=== PATIENT | female | born 1940 | race Caucasian/White ===

== ENCOUNTER → 2017-12-15 | Outpatient (CLI) | payer MEDICARE ==
[2017-12-15 18:29] LABS: BASOPHILS ABSOLUTE AUTO 0.09 K/mm3 (0.00-0.23); BASOPHILS PERCENT AUTO 1 % (0-2); EOSINOPHILS ABSOLUTE AUTO 0.39 K/mm3 (0.00-0.68); EOSINOPHILS PERCENT AUTO 4 % (0-6); Hematocrit 34.3 % (33.0-51.0); Hemoglobin 11.1 g/dL (11.5-16.0); IMMATURE GRAN ABSOLUTE AUTO 0.03 K/mm3 (0.00-0.10); IMMATURE GRAN PERCENT AUTO 0 % (0-1); LYMPHOCYTES ABSOLUTE AUTO 2.31 K/mm3 (0.84-5.20); LYMPHOCYTES PERCENT AUTO 26 % (21-46); MONOCYTES ABSOLUTE AUTO 0.85 K/mm3 (0.16-1.47); MONOCYTES PERCENT AUTO 9 % (4-13); Mean Corpuscular HGB 27.6 pg (26.0-34.0); Mean Corpuscular HGB Conc 32.4 g/dL (31.5-36.5); Mean Corpuscular Volume 85 fL (80-100); Mean Platelet Volume 11.1 fL (9.1-12.4); NEUTROPHILS ABSOLUTE AUTO 5.39 K/mm3 (1.96-9.15); NEUTROPHILS PERCENT AUTO 60 % (41-73); Platelet Count 374 K/mm3 (150-400); RDW Coefficient Variation 16.4 % (11.7-14.2); RDW Standard Deviation 51.3 fL (35.1-46.3); Red Blood Cell Count 4.02 M/mm3 (3.80-5.20); White Blood Cell Count 9.06 K/mm3 (4.00-11.30)
== END | disposition home or self-care (01) ==
LOC: LAB EV 18:25
PROVIDERS: Physician Assistant
DX: R10.84 Generalized abdominal pain (principal)
CPT/HCPCS: 85025

== ENCOUNTER → 2020-08-16 | Outpatient (CLI) | payer MEDICARE ==
[2020-08-16 16:06] LABS: Source, Urine Clean Catch
[2020-08-16 17:17] LABS: Bilirubin, Urine Neg (Neg); Blood, Urine 1+ (Neg); Glucose Qualitative, Urine Neg (Neg); Ketones, Urine Neg (Neg); Leukocyte Esterase, Urine 3+ (Neg); Nitrite, Urine Pos (Neg); Protein, Urine Neg (Neg); Specific Gravity, Urine 1.015 (1.003-1.022); Urobilinogen, Urine NORM (Normal)
[2020-08-16 17:26] LABS: Appearance, Urine Hazy (Clear); Color, Urine Yellow (P-Yellow)
[2020-08-16 17:27] LABS: Bacteria Mod /hpf; Squamous Epithelial Cells Few /hpf (Few)
== END | disposition home or self-care (01) ==
LOC: LAB SHORT 16:03 → LAB 16:03
PROVIDERS: Nurse Practitioner Family
DX: N30.00 Acute cystitis without hematuria (principal)
CPT/HCPCS: 81001; 87077; 87086; 87186

== ENCOUNTER 2020-12-22 02:33 | Emergency (ER) | payer MEDICARE ==
[~2020-12-22] VITALS: Ht 165.1 cm; Wt 90.7 kg
== END 2020-12-22 05:29 | disposition home or self-care (01) ==
LOC: ER 02:33
DX: S00.93XA Contusion of unspecified part of head, initial encounter (principal); S40.012A Contusion of left shoulder, initial encounter; I10 Essential (primary) hypertension; E03.9 Hypothyroidism, unspecified; E78.5 Hyperlipidemia, unspecified; W18.30XA Fall on same level, unspecified, initial encounter; Y92.002 Bathroom of unspecified non-institutional (private) residence as the place of occurrence of the external cause
CPT/HCPCS: 70450; 72125; 73030; 99284-25

== ENCOUNTER → 2021-04-29 | Outpatient (CLI) | payer MEDICARE ==
[2021-04-29 15:32] LABS: Source, Urine Clean Catch
[2021-04-29 15:57] LABS: Appearance, Urine Hazy (Clear); Bilirubin, Urine Neg (Neg); Blood, Urine 1+ (Neg); Color, Urine Yellow (P-Yellow); Glucose Qualitative, Urine Neg (Neg); Ketones, Urine Neg (Neg); Leukocyte Esterase, Urine 3+ (Neg); Nitrite, Urine Pos (Neg); Protein, Urine Neg (Neg); Urobilinogen, Urine NORM (Normal)
[2021-04-29 16:03] LABS: Bacteria Many /hpf; Red Blood Cells, Urine 0-2 /hpf (0-2); Squamous Epithelial Cells Few /hpf (Few); White Blood Cells, Urine 50-100 /hpf (0-5)
== END | disposition home or self-care (01) ==
LOC: LAB 15:20 → LAB SHORT 15:20
PROVIDERS: Student in an Organized Health Care Education/Training Program
DX: N18.32 Chronic kidney disease, stage 3b (principal)
CPT/HCPCS: 81001; 87077; 87086; 87186

== ENCOUNTER → 2021-06-05 | Outpatient (CLI) | payer MEDICARE | LOC: LAB SHORT 14:49 → LAB 14:49 | DX: R82.998 Other abnormal findings in urine (principal) | CPT/HCPCS: 87077; 87086; 87186 ==

== ENCOUNTER 2022-04-16 16:19 | Emergency (ER) | payer MEDICARE ==
[~2022-04-16] VITALS: Ht 165.1 cm; Wt 83.9 kg
[2022-04-16 17:20] LABS: BASOPHILS ABSOLUTE AUTO 0.05 K/mm3 (0.00-0.23); BASOPHILS PERCENT AUTO 0 % (0-2); EOSINOPHILS ABSOLUTE AUTO 0.05 K/mm3 (0.00-0.68); EOSINOPHILS PERCENT AUTO 0 % (0-6); Hematocrit 32.8 % (33.0-51.0); Hemoglobin 10.4 g/dL (11.5-16.0); IMMATURE GRAN ABSOLUTE AUTO 0.06 K/mm3 (0.00-0.10); IMMATURE GRAN PERCENT AUTO 0 % (0-1); LYMPHOCYTES ABSOLUTE AUTO 0.93 K/mm3 (0.84-5.20); LYMPHOCYTES PERCENT AUTO 7 % (21-46); MONOCYTES ABSOLUTE AUTO 1.04 K/mm3 (0.16-1.47); MONOCYTES PERCENT AUTO 7 % (4-13); Mean Corpuscular HGB 25.7 pg (26.0-34.0); Mean Corpuscular HGB Conc 31.7 g/dL (31.5-36.5); Mean Corpuscular Volume 81 fL (80-100); Mean Platelet Volume 10.1 fL (9.1-12.4); NEUTROPHILS PERCENT AUTO 85 % (41-73); Platelet Count 394 K/mm3 (150-400); RDW Coefficient Variation 17.6 % (11.7-14.2); RDW Standard Deviation 51.9 fL (35.1-46.3); Red Blood Cell Count 4.04 M/mm3 (3.80-5.20); White Blood Cell Count 14.23 K/mm3 (4.00-11.30)
[2022-04-16 17:40] LABS: Albumin, Blood 3.2 g/dL (3.4-5.0); Albumin/Globulin Ratio 0.7 (0.8-1.8); Bilirubin, Total 0.7 mg/dL (0.1-1.0); Creatinine, Blood 1.2 mg/dL (0.40-1.00); Globulin, Blood 4.5 g/dL (2.2-4.0); Potassium, Blood 4.1 mmol/L (3.5-5.5); Total Protein, Blood 7.7 g/dL (6.4-8.2)
== END 2022-04-16 20:43 | disposition home or self-care (01) ==
LOC: ER 16:19
PROVIDERS: Physician Assistant
DX: M25.511 Pain in right shoulder (principal); I10 Essential (primary) hypertension
CPT/HCPCS: 36415; 71046; 73030; 80053; 84484; 85025; 93005; 93010; 96374; 96375; 96376; 99284-25; J2270; J2405

== ENCOUNTER 2022-04-18 16:34 | Inpatient (IN) | payer MEDICARE ==
[~2022-04-18] VITALS: Ht 165.1 cm; Wt 86.2 kg
[2022-04-18 18:07] LABS: Source, Urine Clean Catch
[2022-04-18 18:15] LABS: Appearance, Urine Hazy (Clear); Bilirubin, Urine Neg (Neg); Blood, Urine 1+ (Neg); Color, Urine Yellow (P-Yellow); Glucose Qualitative, Urine Neg (Neg); Ketones, Urine Neg (Neg); Leukocyte Esterase, Urine 3+ (Neg); Nitrite, Urine Pos (Neg); Protein, Urine 1+ (Neg); Specific Gravity, Urine 1.015 (1.003-1.022); Urobilinogen, Urine NORM (Normal)
[2022-04-18 18:22] LABS: Bacteria Mod /hpf; Hyaline Casts 0-2 /lpf (0-2); Red Blood Cells, Urine 0-2 /hpf (0-2); Squamous Epithelial Cells Rare /hpf (Few); Transitional Epithelial Cells Rare /hpf (0-Rare); White Blood Cells, Urine TNTC /hpf (0-5)
[2022-04-18 18:32] LABS: BASOPHILS ABSOLUTE AUTO 0.05 K/mm3 (0.00-0.23); BASOPHILS PERCENT AUTO 0 % (0-2); EOSINOPHILS ABSOLUTE AUTO 0.25 K/mm3 (0.00-0.68); EOSINOPHILS PERCENT AUTO 2 % (0-6); Hematocrit 29.5 % (33.0-51.0); Hemoglobin 9.3 g/dL (11.5-16.0); IMMATURE GRAN ABSOLUTE AUTO 0.05 K/mm3 (0.00-0.10); IMMATURE GRAN PERCENT AUTO 0 % (0-1); LYMPHOCYTES PERCENT AUTO 8 % (21-46); MONOCYTES ABSOLUTE AUTO 0.78 K/mm3 (0.16-1.47); MONOCYTES PERCENT AUTO 6 % (4-13); Mean Corpuscular HGB 25.5 pg (26.0-34.0); Mean Corpuscular HGB Conc 31.5 g/dL (31.5-36.5); Mean Corpuscular Volume 81 fL (80-100); Mean Platelet Volume 10.7 fL (9.1-12.4); NEUTROPHILS ABSOLUTE AUTO 10.42 K/mm3 (1.96-9.15); NEUTROPHILS PERCENT AUTO 83 % (41-73); Platelet Count 421 K/mm3 (150-400); RDW Coefficient Variation 17.5 % (11.7-14.2); RDW Standard Deviation 51.1 fL (35.1-46.3); Red Blood Cell Count 3.64 M/mm3 (3.80-5.20); White Blood Cell Count 12.55 K/mm3 (4.00-11.30)
[2022-04-18 18:49] LABS: Albumin, Blood 2.6 g/dL (3.4-5.0); Albumin/Globulin Ratio 0.6 (0.8-1.8); Bilirubin, Total 0.5 mg/dL (0.1-1.0); Bun/Creatinine Ratio 18.2 (12.0-20.0); Calcium, Blood 8.6 mg/dL (8.5-10.1); Creatinine, Blood 1.76 mg/dL (0.40-1.00); Globulin, Blood 4.4 g/dL (2.2-4.0); Magnesium, Blood 2.2 mg/dL (1.6-2.4); Potassium, Blood 3.9 mmol/L (3.5-5.5)
[2022-04-18] MEDS ORDERED: OXYB5 PO ×2 (20:07)
[2022-04-18] MEDS ORDERED: AMLODIPINE BESYL5 MG PO ×2 (20:07)
[2022-04-18] MEDS ORDERED: FLUC150A PO (20:07)
[2022-04-18] MEDS ORDERED: EUTHYROX150 MC1 PO (20:08)
[2022-04-18] MEDS ORDERED: ATORVASTATIN CA20 MG PO ×2 (20:08)
[2022-04-18] MEDS ORDERED: OMEP20ER PO ×2 (20:17)
[2022-04-18] MEDS ORDERED: KLOR-CON 1010 ME8 PO ×2 (20:17)
[2022-04-18] MEDS ORDERED: FUROSEMIDE20 MG PO ×2 (20:17)
--- NOTE | 2022-04-18 21:35 | NUR ---
REPORT RECIEVED FROM RAJ HERNANDEZ (ER) AT 0458
[2022-04-18 21:42] LABS: Free Thyroxine 1.47 ng/dL (0.70-1.60)
[2022-04-18 21:44] LABS: Thyroid Stimulating Hormone 11.6 uIU/mL (0.360-4.800)
[2022-04-18] MEDS ORDERED: LEVSOD150 PO ×2 (22:11)
[2022-04-18] MEDS ORDERED: LOSA50 PO ×2 (22:14)
--- NOTE | 2022-04-18 23:06 | NUR ---
ARRIVED FROM ER AT 2150. PT AOX4. [place]. APPEARS TO BE IN PAIN, GENERALIZE WEAKNESS DUE TO UTI/THAO. PT C/O NECK, SHOULDER AND ABD PAIN. MEDICATED WITH TYLENOL. FLUIDS INFUISING AT 75 MLS/HR. SNACKS BROUGHT IN ROOM. TOLERATING FOOD AND PO INTAKE DENIES NAUSEA AND VOMITING. ATTENDS IN PLACE. IV ON L AC. HEPARIN SC GIVEN. CALL LIGHT WITHIN REACH. WILL CONTINUE TO MONITOR PT.
--- NOTE | 2022-04-19 03:56 | NUR ---
0145: PT STARTING TO ESCALATE/BECOMES MORE AGITATED AND CONFUSE. ALSO HAVING HALLUCINATIONS. PT ATTEMPTING TO GET OUT OF BED. PUSHING STAFF. REFUSE TO STAY IN BED. PULLED TELE MONITOR LINES. 0200: CALLED DR. ABEBE, NOTIFY OF THE INCIDENT, NEW ORDER FOR RESTRAINTS (VEST AND 2 BILATERAL WRIST SOFT) AND HALDOL 2.5MG Q6, PRN.
--- NOTE | 2022-04-19 03:59 | NUR ---
SHIFT SUMMARY PT ALERT AND ORIENTED TO SELF AND PLACE. PT IS VERY CONFUSE AND HALLUCINATING. ATTEMPTING TO GET OUT BED. RESTRAINTS ORDERED FOR SOFT WRIST BILATERAL AND VEST FOR SAFETY. PT ATTEMPT TO BITE THE RESTRAINTS, SCRATCHING AND KICKING NURSING STAFF WELL WHEN RESTRAINTS WERE APPLIED. PT REPORTS SHOULDER PAIN, NECK PAIN, HEADACHE SINCE ADMISSION. NS INFUSING AT 75MLS/HR WITH AN IV SITE ON L AC. PT INTERMITTENTLY YELLS/SCREAMS IN BED. HALDOL 2.5MG WAS GIVEN ONCE (ORDERED Q6. PRN). APPEARS THAT THE MEDICATION HELPED WITH HER AGITATION BUT PT IS STILL CONFUSE. ATTENDS IN PLACE R/T TO URGENCY AND FREQUENCY. VSS. BED ALARM FOR SAFETY. CALL LIGHT WITHIN REACH. WILL CONTINUE TO MONITOR AND WILL PROVIDE REPORT TO ONCOMING NURSE.
[2022-04-19 05:17] LABS: BASOPHILS ABSOLUTE AUTO 0.05 K/mm3 (0.00-0.23); BASOPHILS PERCENT AUTO 1 % (0-2); EOSINOPHILS ABSOLUTE AUTO 0.26 K/mm3 (0.00-0.68); EOSINOPHILS PERCENT AUTO 2 % (0-6); Hematocrit 28.6 % (33.0-51.0); Hemoglobin 9.1 g/dL (11.5-16.0); IMMATURE GRAN ABSOLUTE AUTO 0.04 K/mm3 (0.00-0.10); IMMATURE GRAN PERCENT AUTO 0 % (0-1); LYMPHOCYTES ABSOLUTE AUTO 0.74 K/mm3 (0.84-5.20); LYMPHOCYTES PERCENT AUTO 7 % (21-46); MONOCYTES ABSOLUTE AUTO 0.71 K/mm3 (0.16-1.47); MONOCYTES PERCENT AUTO 7 % (4-13); Mean Corpuscular HGB 25.7 pg (26.0-34.0); Mean Corpuscular HGB Conc 31.8 g/dL (31.5-36.5); Mean Corpuscular Volume 81 fL (80-100); Mean Platelet Volume 11.1 fL (9.1-12.4); NEUTROPHILS ABSOLUTE AUTO 9.17 K/mm3 (1.96-9.15); NEUTROPHILS PERCENT AUTO 84 % (41-73); Platelet Count 411 K/mm3 (150-400); RDW Coefficient Variation 17.4 % (11.7-14.2); RDW Standard Deviation 51.5 fL (35.1-46.3); Red Blood Cell Count 3.54 M/mm3 (3.80-5.20); White Blood Cell Count 10.97 K/mm3 (4.00-11.30)
[2022-04-19 05:40] LABS: Albumin, Blood 2.6 g/dL (3.4-5.0); Albumin/Globulin Ratio 0.6 (0.8-1.8); Bilirubin, Total 0.6 mg/dL (0.1-1.0); Bun/Creatinine Ratio 17.1 (12.0-20.0); Calcium, Blood 8.7 mg/dL (8.5-10.1); Creatinine, Blood 1.75 mg/dL (0.40-1.00); Globulin, Blood 4.1 g/dL (2.2-4.0); Potassium, Blood 3.5 mmol/L (3.5-5.5); Total Protein, Blood 6.7 g/dL (6.4-8.2)
[2022-04-19] MEDS ORDERED: Prozac40 MG PO ×2 (09:46)
[2022-04-19] MEDS ORDERED: POTA10T PO (09:47)
[2022-04-19] MEDS ORDERED: BUSP10 PO ×2 (09:47)
[2022-04-19] MEDS ORDERED: CATAPRES0.1 MG PO ×2 (09:48)
[2022-04-19] MEDS ORDERED: METO25ER PO ×2 (09:49)
--- NOTE | 2022-04-19 17:14 | NUR ---
SHIFT SUMMARY PT AXO X3 (TO ORIENTATION QUESTIONS) THOUGH CONFUSED, HALLUCINATING THROUGHOUT THE SHIFT. YANET DC'D THIS MORNING WHEN "FAMILY FRIEND" CAME TO SIT WITH PATIENT. HOWEVER AT 1052 FAMILY FRIEND HAD TO LEAVE, PT CONTINUED TO BE CONFUSED AND FALL RISK AND THEREFOR PER DR. SANCHEZ ORDER PT WAS PLACED BACK IN RESTRAINTS, TOLERATING WELL. VSS. NEW IV PLACED THIS SHIFT AND PRIOR IV DC'D R/T LEAKING. UP WITH 1-2 ASSIST WITH FWW AND GB, PIVOT TRANSFER. CONT/INCONT WITH FREQUENT VOIDS. BED IN LOW POSITION, CALL LIGHT WITHIN REACH. BED ALARM ON. LR INFUSING PER EMAR. PT COMPLAINS OF "ARTHRITIS" IN HER WRISTS, PLACED ON PILLOWS FOR COMFORT. PAINFUL WITH MOVEMENT.
--- NOTE | 2022-04-20 04:02 | NUR ---
SHIFT SUMMARY: PT WAS A/OX1. SHE SUNDOWNED THROUGHOUT THE SHIFT, AND ALTHOUGH SHE REMAINED IN THE YANET VEST THE PATIENT IS ABLE TO WIGGLE TO THE SIDE OF THE BED. SHE HAD VISUAL AND AUDITORY HALLUCINATIONS AND WAS EXTREMELY PARANOID TOWARDS THE STAFF. PER TELE MONITOR SHE WAS SR/90s. SHE DID FINISH HER 1L OF LR AND IS NOW SALINE LOCKED. SHE DID NOT HAVE ANY C/O PAIN, FEVER, OR NAUSEA. HER BED IS IN THE LOWEST POSITION AND THE ALARM IS SET FOR PT SAFETY.
[2022-04-20 08:42] LABS: BASOPHILS ABSOLUTE AUTO 0.05 K/mm3 (0.00-0.23); BASOPHILS PERCENT AUTO 0 % (0-2); EOSINOPHILS ABSOLUTE AUTO 0.15 K/mm3 (0.00-0.68); EOSINOPHILS PERCENT AUTO 1 % (0-6); Hemoglobin 9.6 g/dL (11.5-16.0); IMMATURE GRAN ABSOLUTE AUTO 0.12 K/mm3 (0.00-0.10); IMMATURE GRAN PERCENT AUTO 1 % (0-1); LYMPHOCYTES ABSOLUTE AUTO 1.34 K/mm3 (0.84-5.20); LYMPHOCYTES PERCENT AUTO 10 % (21-46); MONOCYTES ABSOLUTE AUTO 1.12 K/mm3 (0.16-1.47); MONOCYTES PERCENT AUTO 8 % (4-13); Mean Corpuscular HGB 25.4 pg (26.0-34.0); Mean Corpuscular Volume 82 fL (80-100); Mean Platelet Volume 10.6 fL (9.1-12.4); NEUTROPHILS ABSOLUTE AUTO 11.38 K/mm3 (1.96-9.15); NEUTROPHILS PERCENT AUTO 80 % (41-73); Platelet Count 457 K/mm3 (150-400); RDW Coefficient Variation 17.2 % (11.7-14.2); RDW Standard Deviation 51.3 fL (35.1-46.3); Red Blood Cell Count 3.78 M/mm3 (3.80-5.20); White Blood Cell Count 14.16 K/mm3 (4.00-11.30)
[2022-04-20 08:53] LABS: Bun/Creatinine Ratio 13.9 (12.0-20.0); Calcium, Blood 8.5 mg/dL (8.5-10.1); Creatinine, Blood 1.01 mg/dL (0.40-1.00); Potassium, Blood 3.5 mmol/L (3.5-5.5)
--- NOTE | 2022-04-20 17:26 | NUR ---
SHIFT SUMMARY PT AXO X1-2 AT THIS TIME WHICH IS IMPROVED FROM START OF SHIFT WHEN PATIENT WAS MUMBLING INCOHERENTLY. PT TEMPERATURE THROUGHOUT THE SHIFT HAS BEEN 99.6-99.9. AND BP HAS BEEN INCREASING THROUGHOUT THE SHIFT. DR SANCHEZ NOTIFIED OF BP WITH MORNING ROUNDING AND AGAIN AT 1720, NEW ORDERS OF HYDRALAZINE PLACED. POWERGLIDE PLACED THIS SHIFT PER CHARGE NURSE JULISSA MCDONALD RN AT 1715. PT CONTINUES TO BE IN YANET FOR SAFETY SHE HAS BEEN ATTEMPTING OOB AND CONTINUES TO BE A HIGH RISK FOR FALLS. PT ALSO COMBATIVE AT TIMES. BED IN LOW POSITION, CALL LIGHT WITHIN REACH AND BED ALARM ON. THIS PATIENT TO TRANSFER TO ROOM IN SCU WHEN IT IS CLEANED.
--- NOTE | 2022-04-20 17:33 | NUR ---
PT'S SON CALLED THIS SHIFT FOR AN UPDATE HE (SADI COOLEY, [id number]) REQUESTS TO BE THE MAIN CONTACT WITH ALL DECISIONS AND UPDATES. HIS SISTER KENDRA LIVES LOCALLY AND SHOULD BE CONTACTED SECOND IF NEEDED. ([phone].) Darrius IS LITO SON AND IS ABLE TO VISIT PATIENT. FRANCIE IS A FAMILY FRIEND WHO IS IN TOWN TEMPORARILY TO HELP CARE FOR PATIENT AT HOME AND PRIOR TO HOSPITALIZATION. SADI WOULD LIKE TO SPEAK WITH FOSTER CARE THERAPIST REGARDING SAFE DISCHARGE PLAN.
--- NOTE | 2022-04-20 18:41 | NUR ---
SHIFT SUMMARY PATIENT ARRIVED TO ROOM 352 FROM 301 AT 1820. REPORT RECEIVED. BELONGINGS WERE PROGHT WITH PATIENT INCLUDING HER HOME CPAP. RT AT BEDSIDE TO INSPECT AND SET UP. PATIENT IS IN A YANET VEST. SHE IS ALERT TO HERSELF. SHE REFUSES DINNER STATING "THEY PUT STUFF IN THE FOOD TO MAKE YOU GO TO THE BATHROOM EVERY THREE DAYS." SHE IS LAYING IN BED, BED LOW AND LOCKED, CALL LIGHT WITHIN REACH, BED ALARM SET. WILL CONT TO MONITOR UNTIL REPORT GIVEN TO AIRCRAFT DESIGN ENGINEER.
--- NOTE | 2022-04-20 21:06 | NUR ---
REFUSED ALL HS MEDS, BECAME VERY AGITATED WHEN NURSE ENCOURAGED HER TO TAKE THEM, VOICED DIDNT CARE ABOUT THE MEDS AND WHY THEY WERE GIVEN TO HER. YANET VEST INTACT, FOR SAFETY. HIGH FALL RISK AND NOT REDIRECTABLE. CALL LIGHT IN REACH
--- NOTE | 2022-04-20 21:41 | NUR ---
AGITATION CONTINUES. REFUSED TO TAKE HS MEDS. PULLING OFF TELE LINES. NOT REDIRECTABLE. REMAINS HIGH FALL RISK, PULLING AT LINES. SCREAMING. MD NOTIFIED AND RESTRAINTS INCREASSED TO INCLUDE BILAT SOFT WRIST. CALL LIGHT IN REACH. ENCOURAGED TO BE SAFE.
--- NOTE | 2022-04-21 00:23 | NUR ---
CONTINUES TO REFUSE TO DRINK FLUIDS OR EAT. MD WAS NOTIFIED AND NS WAS ORDERED AT 75 ML/HR. ON CAMERA FOR SAFETY WELL. WILL CONTINUE TO MONITOR/ASSESS.
--- NOTE | 2022-04-21 04:32 | NUR ---
MECHANIC CHIEF SUMMARY AWAKE AND PULLING AT LINES, ATTEMPTS TO GET OUT OF BED, DEFIANT WITH STAFF ATTEMPTING TO REDIRECT HER FOR HER SAFETY. CALLING OUT AT VISUAL HALLUCINATIONS SHE SEEMS TO VISUALIZE, EVEN ATTEMPTING TO HAVE STAFF INTERACT WITH THE HALLUCINATION SHE SEES. YANET VEST FOR SAFETY WENT TO BILAT WRIST RESTRAINTS AND EVENTUAL MITTS FOR PREVENTING PULLING OUT IV AND OFF TELE LEADS. BP ELEVATED, ANTIHYPERTENSIVE ADMINISTERED - SEE MAR AND DOC FLOW SHEETS FOR DETAILS. MED TELE SINUS TACH. CURRENTLY RESTING QUIETLY, BUT STILL RESTLESS AT TIMES. CALL LIGHT IN REACH.
[2022-04-21 08:45] LABS: BASOPHILS PERCENT AUTO 1 % (0-2); EOSINOPHILS ABSOLUTE AUTO 0.26 K/mm3 (0.00-0.68); EOSINOPHILS PERCENT AUTO 2 % (0-6); Hemoglobin 10.8 g/dL (11.5-16.0); IMMATURE GRAN ABSOLUTE AUTO 0.19 K/mm3 (0.00-0.10); IMMATURE GRAN PERCENT AUTO 1 % (0-1); LYMPHOCYTES ABSOLUTE AUTO 1.42 K/mm3 (0.84-5.20); LYMPHOCYTES PERCENT AUTO 10 % (21-46); MONOCYTES ABSOLUTE AUTO 1.13 K/mm3 (0.16-1.47); MONOCYTES PERCENT AUTO 8 % (4-13); Mean Corpuscular HGB 25.5 pg (26.0-34.0); Mean Corpuscular HGB Conc 31.8 g/dL (31.5-36.5); Mean Corpuscular Volume 80 fL (80-100); Mean Platelet Volume 10.2 fL (9.1-12.4); NEUTROPHILS ABSOLUTE AUTO 11.02 K/mm3 (1.96-9.15); NEUTROPHILS PERCENT AUTO 78 % (41-73); Platelet Count 524 K/mm3 (150-400); RDW Coefficient Variation 17.3 % (11.7-14.2); RDW Standard Deviation 50.3 fL (35.1-46.3); Red Blood Cell Count 4.23 M/mm3 (3.80-5.20); White Blood Cell Count 14.12 K/mm3 (4.00-11.30)
[2022-04-21 08:56] LABS: Bun/Creatinine Ratio 16.5 (12.0-20.0); Calcium, Blood 8.9 mg/dL (8.5-10.1); Creatinine, Blood 0.85 mg/dL (0.40-1.00); Potassium, Blood 3.3 mmol/L (3.5-5.5)
--- NOTE | 2022-04-21 16:32 | NUR ---
SHIFT SUMMARY PT AWAKE AT START OF SHIFT, VERY AGITATED AND COMBATIVE. PT TRYING TO PULL OUT DONALDO IV SITE AND DRSG. PT YELLING OUT AND REMAINED AGITATED FOR A WHILE AND THEN WENT TO SLEEP. PT NAPPED UNTIL AFTER BREAKFAST, NOT WANTING TO WAKE UP AND EAT. P/T HERE TO TRY TO WORK WITH PT AND LATER RETURNED WHEN MORE AWAKE. PT ASSISTED UP TO BSC AND THEN CHAIR AT BEDSIDE. PT HAS REMAINED IN CHAIR SINCE WORKING WITH PT/OT. PT HAS BEEN MORE CO-OP SINCE WAKING UP AFTER NAP THIS AM. REMAINS CONFUSED ABOUT MOST THINGS, BUT CO-OP. SON CALLED FOR AN UPDATE; GIVEN. SON REPORTED THAT HIS MOM IS NOT NORMALLY COMBATIVE. DR SANCHEZ TO CONTACT FAMILY TO UPDATE THEM. PT TO D/C TO SNF WHEN BED AVAILABLE. CHAIR AND BED ALARM USED FOR SAFETY. CALL LT IN REACH.
--- NOTE | 2022-04-21 19:07 | NUR ---
UP IN CHAIR, TALKING WITH VISITOR. AFFECT CHEERFUL. CALL LIGHT IN REACH
--- NOTE | 2022-04-21 21:29 | NUR ---
MORE CHEERFUL AFFECT THIS HS. COMPLIANT WITH ASSISTANCE TO BED, TOLERAATED HS MEDS WELL. IVF INFUSING AT 75 ML/HR. NURSE SPOKE WITH SON "SADI", WHO HAD REQUESTED AN UPDATE AND VOICED TO CALL HIM IF NEEDED "ANY TIME DAY OR NIGHT". CALL LIGHT IN PT REACH. HOB ELEVATED ABOUT 30 DEGREES
--- NOTE | 2022-04-22 03:39 | NUR ---
WAS CALLING OUT, SCREAMING. REFUSED SLEEP MED ORDERED EARLIER. ATTEMPTING TO GET OUT OF BED, THEN PULLED OFF TELE LEADS. NURSE CAME INTO ROOM. CONFRONTED BEHAVIOR. PT SCREAMED THAT SHE WANTED TO TALK TO HER SON SADI. SADI WAS CALLED AND AGREED TO SPEAK WITH HIS MOTHER. COLD SODA GIVEN TO PT SHE SAID IT HELPS HER SLEEP. LEADS REPLACED. PT CHANGED (WAS INCONT OF URINE). CALL LIGHT IN ERACH. RESTING AT THIS TIME.
--- NOTE | 2022-04-22 04:15 | NUR ---
RISK MODELER SUMMARY AT SHIFT COMMENCE WAS CHEERFUL, VISITING WITH [facility]. COMPLIANT [facility] HS MEDS AND ASSISTED TO BED. SOME RESTLESSNESS NOTED, WANTED MED FOR SLEEP. CALLS PLACED TO MD TRANSITION RN, MED ORDER OBTAINED, BUT PT CHANGED HER MIND WHEN OFFERED MED. LATER RESTLESSNESS INCREASED TO ANXIUS ACTIONS, ATTEMPTING TO CLIMB OUT OF BED. PULLED OFF TELE STRIPS AND WAS TRYING TO HIT STAFF WITH THEM. NURSE CONFRONTED BEHAVIOR, PT VOICED WANTING TO TALK WITH HER SON, SON WAS CALLED AND HE TALKED WITH HER. SON ALSO SAID PT LIKES COKE WITH ICE, THAT IT HAS HELPED HER TO SLEEP. PEPSI ON ICE GIVEN. CURRENTLY RESTING QUIETLY. TELE IN PLACE. CALL LIGHT IN REACH.
--- NOTE | 2022-04-22 06:12 | NUR ---
REFUSING ALL MEDS AND BLOOD DRAW AT THIS TIME. WILL HAVE AM RN DRAW AM LABS. CALL LIGHT IN REACH. PT QUIET.
[2022-04-22 08:10] LABS: BASOPHILS ABSOLUTE AUTO 0.09 K/mm3 (0.00-0.23); BASOPHILS PERCENT AUTO 1 % (0-2); EOSINOPHILS ABSOLUTE AUTO 0.59 K/mm3 (0.00-0.68); EOSINOPHILS PERCENT AUTO 5 % (0-6); Hematocrit 31.6 % (33.0-51.0); Hemoglobin 10.1 g/dL (11.5-16.0); IMMATURE GRAN ABSOLUTE AUTO 0.16 K/mm3 (0.00-0.10); IMMATURE GRAN PERCENT AUTO 1 % (0-1); LYMPHOCYTES ABSOLUTE AUTO 2.17 K/mm3 (0.84-5.20); LYMPHOCYTES PERCENT AUTO 19 % (21-46); MONOCYTES ABSOLUTE AUTO 0.95 K/mm3 (0.16-1.47); MONOCYTES PERCENT AUTO 8 % (4-13); Mean Corpuscular HGB 25.5 pg (26.0-34.0); Mean Corpuscular Volume 80 fL (80-100); Mean Platelet Volume 10.3 fL (9.1-12.4); NEUTROPHILS ABSOLUTE AUTO 7.46 K/mm3 (1.96-9.15); NEUTROPHILS PERCENT AUTO 65 % (41-73); Platelet Count 532 K/mm3 (150-400); RDW Coefficient Variation 17.2 % (11.7-14.2); RDW Standard Deviation 50.2 fL (35.1-46.3); Red Blood Cell Count 3.96 M/mm3 (3.80-5.20); White Blood Cell Count 11.42 K/mm3 (4.00-11.30)
[2022-04-22 08:35] LABS: Bun/Creatinine Ratio 17.8 (12.0-20.0); Calcium, Blood 8.9 mg/dL (8.5-10.1); Creatinine, Blood 1.07 mg/dL (0.40-1.00); Potassium, Blood 3.6 mmol/L (3.5-5.5)
--- NOTE | 2022-04-22 14:25 | NUR ---
SHIFT SUMMARY PT AWAKE THIS AM, AT START OF SHIFT, AFTER REFUSING EARLY AM MEDS AND LAB DRAW. PT A LITTLE CALMER AT START OF SHIFT TODAY THAN YESTERDAY OR REPORT OF LAST NIGHT. PT HAS CONTINUED HALLUCINATING THRU OUT THE DAY AGAIN TODAY; OCCASSIONALLY REALIZING THAT SHE IS. DR SANCHEZ IN TO SEE PT THIS AM. SON CALLED FROM [place] AGAIN TODAY FOR UPDATE. DAUGHTER ALSO IN TO VISIT. PT UP TO SHOWER THIS AM BEFORE BREAKFAST, WITH ASSIST BY STEWARD/STEWARDESS SECOND CLASS'S. LINENS AND GOWN CHANGED. NO C/O AGAIN TODAY. TELE D/C'D; PT REMAINED SR PER MX TECH. CALL LT IN REACH. CHAIR ALARM ON FOR SAFETY.
--- NOTE | 2022-04-23 03:26 | NUR ---
NOTE C/O PAIN OF RIGHT HAND. NOTE SOME SWELLING OF AREA, MD NOTIFIED AND ORDERS FOR HAND XRAY OBTAINED. RADIOLOGY NOTIFIED
--- NOTE | 2022-04-23 03:50 | NUR ---
SQUARE DANCE CALLER SUMMARY INTERMITTENT CALLING OUT, RECEIVED HS PRN SEROQUEL FOR ANXIETY/HALLUCINATIONS. BUT SEEMED TO EXCALATE TO SCREAMING AND CALLING OUT FOR STAFF TO FIND THE CHILDREN WHO WERE HIDING UNDER THE BED AND OTHERS SHE SAID WERE IN THE BATHROOM (NO ONE WAS THERE). MULTIPLE ATTEMPTS TO GET OUT OF BED, DEFIANT AND RESISTENT TO REDIRECTION FOR SAFETY. PLACED IN YANET VEST AND 4 SIDERAILS PER MD ORDERES FOR SAFETY. LATER WHEN ASSISTING WITH BEDSIDE COMMODE, NOTED PAIN AND SWELLING OF RIGHT HAND, MD NOTIFIED AND ORDERS FOR X RAY OBTAINED. HAND WAS JUST X RAYED. AWAITING RESULTS. CALL LIGHT IN REACH. REMAINS ON CAMERA FOR SAFETY WELL. X RAYED AND
[2022-04-23 09:24] LABS: BASOPHILS ABSOLUTE AUTO 0.14 K/mm3 (0.00-0.23); BASOPHILS PERCENT AUTO 1 % (0-2); EOSINOPHILS ABSOLUTE AUTO 0.76 K/mm3 (0.00-0.68); EOSINOPHILS PERCENT AUTO 6 % (0-6); Hematocrit 34.3 % (33.0-51.0); Hemoglobin 10.7 g/dL (11.5-16.0); IMMATURE GRAN ABSOLUTE AUTO 0.14 K/mm3 (0.00-0.10); IMMATURE GRAN PERCENT AUTO 1 % (0-1); LYMPHOCYTES ABSOLUTE AUTO 1.94 K/mm3 (0.84-5.20); LYMPHOCYTES PERCENT AUTO 14 % (21-46); MONOCYTES ABSOLUTE AUTO 0.83 K/mm3 (0.16-1.47); MONOCYTES PERCENT AUTO 6 % (4-13); Mean Corpuscular HGB 25.4 pg (26.0-34.0); Mean Corpuscular HGB Conc 31.2 g/dL (31.5-36.5); Mean Corpuscular Volume 82 fL (80-100); Mean Platelet Volume 10.2 fL (9.1-12.4); NEUTROPHILS ABSOLUTE AUTO 10.02 K/mm3 (1.96-9.15); NEUTROPHILS PERCENT AUTO 73 % (41-73); Platelet Count 582 K/mm3 (150-400); RDW Coefficient Variation 17.3 % (11.7-14.2); RDW Standard Deviation 51.2 fL (35.1-46.3); Red Blood Cell Count 4.21 M/mm3 (3.80-5.20); White Blood Cell Count 13.83 K/mm3 (4.00-11.30)
[2022-04-23 09:44] LABS: Bun/Creatinine Ratio 21.2 (12.0-20.0); Calcium, Blood 9.1 mg/dL (8.5-10.1); Creatinine, Blood 1.04 mg/dL (0.40-1.00); Potassium, Blood 3.6 mmol/L (3.5-5.5)
[2022-04-23 11:17] LABS: Percent Saturation 7.9 % (15.0-50.0)
--- NOTE | 2022-04-23 16:37 | NUR ---
PT IS ALERT. ORIENTED TO SELF, SLURRED SPEECH. PT APPEARS TO BE BREATHING EASILY ON RA AT THIS TIME. THE PT WAS UP TO THE SHOWER ASSISTED BY THE SOCIAL WORKER PALLIATIVE CARE AND THEN IN THE CHAIR FOR BREAKFAST AND LUNCH. THE PT AMBULATED OUT IN THE [place] USEING THE FWW ACCOMPANIED BY THE SOCIAL WORKER PALLIATIVE CARE AND IS NOW OUT IN THE [employer] SITTING IN A CHAIR. WILL CONTINUE TO MONITOR AND ASSESS FOR CHANGES
--- NOTE | 2022-04-24 04:05 | NUR ---
SHIFT SUMMARY PT HAS BEEN ASLEEP MOST OF THE NIGHT. NO ACUTE CHANGES TO PT CONDITION AND PT HAS NO COMPLAINTS AT THIS TIME. CALL LIGHT IS WITHIN PT REACH.
--- NOTE | 2022-04-24 04:33 | NUR ---
PT WOKE UP PLEASANT AND COOPERATIVE THIS AM. TOOK MORNING MEDICATIONS AND IS GOING TO TRY TO GO BACK TO SLEEP.
--- NOTE | 2022-04-24 17:03 | NUR ---
END SHIFT SUMMARY PTN ALERT AND NOTABLY MORE COGNITVE TODAY THAN PREVIOUSLY REPORTED, PLEASANT, COOPERATIVE. REPORTED PAIN TO LEFT FOOT POSTERIOR EDGE WITH DIFFICULTY STANDING ON IT, REPORTED 5 OUT OF 10 ON THE PAIN SCALE, MEDICATED X2 WITH TYENOL DURING SHIFT. RIGHT HAND CONTINUES TO HAVE SWELLING AND REDNESS, CAUSING DISCOMFORT FOR PTN. HAND ICED AND ELEVATED DURING SHIFT. SEEN BY DR PORTER, MEDICATION ORDERED. PTN SEEN BY BOTH PT AND OT DURING SHIFT. PTN USED BEDSIDE COMMODE DUE TO HER FOOT PAIN AND DIFFICULTY WITH WEIGHTBERING. PTN SPOKE WITH SON SADI. PTN REMINISCED ABOUT MAKING SOAP AND QUILTING, AND THE IDEA OF WANTING TO GET WELL ENOUGH TO TAKE ROAD TRIPS. PTN AWAITING PLACEMENT TO SHELTER FOR REHAB ASSIST.
--- NOTE | 2022-04-25 04:13 | NUR ---
OFFERRED MOM TO PATIENT - PT DECLINED - PER PT REPORT, PT DOESN'T LIKE MOM. REPORTED TO PT - PT WILL START ON COLACE AND SENNA TODAY - PT AGREEABLE TO THIS.
--- NOTE | 2022-04-25 04:42 | NUR ---
SHIFT SUMMARY - NO ACUTE CHANGES THROUGHOUT THIS SHIFT. PT HAS SLEPT THROUGHOUT MOST OF THE NIGHT - RESPIRATIONS EVEN AND UNLABORED. PT AWAKENS EASILY TO VERBAL COMMUNICATION. PT HAS REMAINED ALERT AND ORIENTED THROUGHOUT THE NIGHT. PT HAS BEEN APPROPRIATE IN HER BEHAVIOR AND HAS BEEN COOPERATIVE WITH CARE. PT DECLINED MILK OF MAGNESIA THIS AM, BUT WILL BEGIN BOWEL CARE TODAY. FLUIDS AT BEDSIDE. CALL LIGHT WITHIN REACH. BED IN LOW POSITION. WILL CONTINUE TO MONITOR UNTIL AM SHIFT CHANGE.
--- NOTE | 2022-04-25 16:58 | NUR ---
SHIFT SUMMARY PTN ALERT AND ORIENTED X4, PLEASANT, COOPERATIVE. LEFT FOOT WITH NO PAIN AT REST TODAY, CONTINUES TO HAVE SOME IRRITATION AT THE POSTERIOR HEEL AREA. RIGHT HAND IMPROVED, SLIGHT SWELLING AND REDNESS TO THE HAND AND FINGERS. OT WORKED WITH PTN TODAY, IMPROVED MOBILITY FROM YESTERDAY. COURSE LUNG SOUNDS HEARD IN LLL. PTN UP TO CHAIR AFTER PT. PTN HAD VISITOR AND PHONE CONVERSATIONS, LOOKS FORWARD TO CONTINUED IMPROVEMENT. POSSIBLE PLACEMENT TO REHAB FACILITY.
[2022-04-26 04:57] LABS: BASOPHILS ABSOLUTE AUTO 0.02 K/mm3 (0.00-0.23); BASOPHILS PERCENT AUTO 0 % (0-2); EOSINOPHILS PERCENT AUTO 0 % (0-6); Hematocrit 28.6 % (33.0-51.0); Hemoglobin 8.9 g/dL (11.5-16.0); IMMATURE GRAN ABSOLUTE AUTO 0.26 K/mm3 (0.00-0.10); IMMATURE GRAN PERCENT AUTO 2 % (0-1); LYMPHOCYTES ABSOLUTE AUTO 1.48 K/mm3 (0.84-5.20); LYMPHOCYTES PERCENT AUTO 9 % (21-46); MONOCYTES ABSOLUTE AUTO 0.53 K/mm3 (0.16-1.47); MONOCYTES PERCENT AUTO 3 % (4-13); Mean Corpuscular HGB 25.1 pg (26.0-34.0); Mean Corpuscular HGB Conc 31.1 g/dL (31.5-36.5); Mean Corpuscular Volume 81 fL (80-100); Mean Platelet Volume 10.5 fL (9.1-12.4); NEUTROPHILS ABSOLUTE AUTO 15.06 K/mm3 (1.96-9.15); NEUTROPHILS PERCENT AUTO 87 % (41-73); Platelet Count 562 K/mm3 (150-400); RDW Coefficient Variation 17.2 % (11.7-14.2); RDW Standard Deviation 50.2 fL (35.1-46.3); Red Blood Cell Count 3.54 M/mm3 (3.80-5.20); White Blood Cell Count 17.35 K/mm3 (4.00-11.30)
[2022-04-26 05:20] LABS: Bun/Creatinine Ratio 32.4 (12.0-20.0); Creatinine, Blood 1.08 mg/dL (0.40-1.00); Potassium, Blood 3.9 mmol/L (3.5-5.5)
--- NOTE | 2022-04-26 05:23 | NUR ---
SHIFT SUMMARY PATIENT ALERT AND ORIENTED X3. HAD NO COMPLAINTS OF PAIN OR SHORTNESS OF BREATH. NO ACUTE ISSUES NOTED OVERNIGHT. BED IN LOWEST POSITION WITH WHEELS LOCKED AND ALARM ON. CALL LIGHT WITHIN REACH. REPORT GIVEN TO ONCOMING RN.
--- NOTE | 2022-04-26 16:11 | NUR ---
SHIFT SUMMARY- T CONTINUES TO BE ALET AND ORIENTED X3. AT THE START OF THE SHIFT, DURING BEDSIDE REPORT THE PT WAS ON THE PHONE CARRYING ON A FULL ACTIVE CONVERSATION AND SHE DID NOT APPEAR TO BE REPEATING HERSELF. PT HAD A BM THIS MORNING FOLLOWED BY A LOOSE STOOL THIS AFTERNOON AND THIS EVENING SHE HAD A VERY LARGE LOOSE INCONTINENT STOOL. WILL PASS ON TO NIGHT RN TO HOLD LAXITIVES AND STOOL SOFTENERS FOR AWHILE. PT HAD A SHOWER THIS EVENING. PT CONTINUES TO BE A 1PA FOR TRANSFERS AND AMBULATION OR STABILITY. CAME TO SEE THE PT THIS AFTERNOON AND IS PLANNING TO DC THE PT HOME TOMORROW. PT IS ON CONT BIOX AND WAS NOTED TO HAVE LOW O2 SATS WHEN SHE WAS SLEEPING, PT PLACED ON 2L O2 WHILE NAPPING AND SATS CAME UP TO 92%. HOME CPAP IN THE ROOM, HOWEVER THE POWER CORD IS NOT WITH IT. THE PT ASKED HER FAMILY MEMBER TO BRING IN THE CORD THIS EVENING. THE MACHINE STILL NEEDS TO BE CLEARED FOR USE BY THE RT ONCE THE CORD ARRIVES. OTHER THAN THAT NO ACUTE CHANGES T/O THE SHIFT. PT CURRENTLY IN THE SHOWER WITH THE DIRECTOR OF CLAIMS ASSISTING HER. WILL CTM AND PASS ON TO NIGHT RN IN BEDSIDE REPORT.
--- NOTE | 2022-04-27 06:10 | NUR ---
SHIFT SUMMARY PATIENT ALERT AND ORIENTED X3. HAD NO COMPLAINTS OF PAIN OR SHORTNESS OF BREATH. NO ACUTE ISSUES NOTED OVERNIGHT. CALL LIGHT WITHIN REACH. REPORT GIVEN TO ONCOMING RN.
[2022-04-27] MEDS ORDERED: FAMO20 PO ×2 (12:13)
[2022-04-27] MEDS ORDERED: Prednisone10 MG PO ×2 (12:13)
--- NOTE | 2022-04-27 13:22 | NUR ---
DISCHARGE NOTE- PT WS GIVEN VERBAL AND WRITTEN DISCHARGE INSTRUCTIONS AND ACKNOWEDGED UNDERSTANDING OF THEM. PT ASKED THE APPROPRIATE QUESTIONS. PER DR PORTER PT TO RECIEVE IV IRON PRIOR TO DC. THAT IS RUNNING NOW, PT CALLED HER FAMILY TO TELL THEM SHE NEEDS A RIDE IN 1 HOUR. AT THAT TIME PT WILL BE ESCORTED OUT TO THE CAR VIA WC. PT CURRENTLY ON ROOM AIR, NO S&S OF DISTRESS NOTED. WILL CTM.
== END 2022-04-27 15:09 | disposition home or self-care (01) | DRG 682 ==
LOC: ER 16:34 → MEDS 20:22
PROVIDERS: Emergency Medicine; Internal Medicine; ADMIT Internal Medicine
DX: N17.9 Acute kidney failure, unspecified (principal); G92.8 Other toxic encephalopathy; Z66 Do not resuscitate; E86.0 Dehydration; I12.9 Hypertensive chronic kidney disease with stage 1 through stage 4 chronic kidney disease, or unspecified chronic kidney disease; N30.90 Cystitis, unspecified without hematuria; N18.30 Chronic kidney disease, stage 3 unspecified; M05.2 Rheumatoid vasculitis with rheumatoid arthritis; M05.241 Rheumatoid vasculitis with rheumatoid arthritis of right hand; D50.9 Iron deficiency anemia, unspecified; E78.5 Hyperlipidemia, unspecified; G31.84 Mild cognitive impairment of uncertain or unknown etiology; F41.9 Anxiety disorder, unspecified; M65.841 Other synovitis and tenosynovitis, right hand; E03.9 Hypothyroidism, unspecified; M65.871 Other synovitis and tenosynovitis, right ankle and foot; D63.1 Anemia in chronic kidney disease; F32.A Depression, unspecified; E87.6 Hypokalemia; B96.20 Unspecified Escherichia coli [E. coli] as the cause of diseases classified elsewhere; D46.9 Myelodysplastic syndrome, unspecified; Z87.01 Personal history of pneumonia (recurrent); Z90.710 Acquired absence of both cervix and uterus; Z90.13 Acquired absence of bilateral breasts and nipples; Z98.890 Other specified postprocedural states; Z79.899 Other long term (current) drug therapy
CPT/HCPCS: 36415; 71046; 73030; 73120; 76770; 80048; 80053; 81001; 82728; 83540; 83550; 83605; 83735; 84439; 84443; 84484; 85025; 85651; 86430; 87077; 87086; 87186; 93005; 93010; 94762; 96361; 96374; 96375; 96376; 97110; 97116; 97162; 97166; 97530; 97535; 99284-25; 99285-25; A9270; J0360; J0696; J1630; J1644; J2060; J2270; J2405; J2916; J7030; J7120; J7512

== ENCOUNTER → 2022-04-29 | Outpatient (CLI) | payer MEDICARE ==
[~2022-04-29] MED LIST: AMLODIPINE BESYL5 MG PO; ATORVASTATIN CA20 MG PO; BUSP10 PO; CATAPRES0.1 MG PO; EUTHYROX150 MC1 PO; FAMO20 PO; FLUC150A PO; FUROSEMIDE20 MG PO; KLOR-CON 1010 ME8 PO; LEVSOD150 PO; LOSA50 PO; METO25ER PO; OMEP20ER PO; OXYB5 PO; POTA10T PO; Prednisone10 MG PO; Prozac40 MG PO
[2022-04-29 16:56] LABS: Source, Urine Clean Catch
[2022-04-29 20:03] LABS: Appearance, Urine Hazy (Clear); Bilirubin, Urine Neg (Neg); Blood, Urine 3+ (Neg); Color, Urine Yellow (P-Yellow); Glucose Qualitative, Urine Neg (Neg); Ketones, Urine Neg (Neg); Leukocyte Esterase, Urine 1+ (Neg); Nitrite, Urine Neg (Neg); Protein, Urine 1+ (Neg); Specific Gravity, Urine 1.015 (1.003-1.022); Urobilinogen, Urine NORM (Normal)
[2022-04-29 20:13] LABS: Amorphous Light (0-Heavy); Bacteria Mod /hpf; Squamous Epithelial Cells Few /hpf (Few); White Blood Cells, Urine 0-2 /hpf (0-5)
== END | disposition home or self-care (01) ==
LOC: LAB SHORT 16:53 → LAB 16:53
PROVIDERS: Student in an Organized Health Care Education/Training Program
DX: R35.89 Other polyuria (principal)
CPT/HCPCS: 81001

== ENCOUNTER 2022-06-08 08:31 | Emergency (ER) | payer MEDICARE ==
[~2022-06-08] VITALS: Ht 167.6 cm; Wt 81.7 kg
[2022-06-08 09:25] LABS: Source, Urine Clean Catch
[2022-06-08 09:31] LABS: Bilirubin, Urine Neg (Neg); Blood, Urine Neg (Neg); Glucose Qualitative, Urine Neg (Neg); Ketones, Urine Neg (Neg); Leukocyte Esterase, Urine Neg (Neg); Nitrite, Urine Neg (Neg); Protein, Urine Neg (Neg); Urobilinogen, Urine NORM (Normal)
[2022-06-08 09:31] LABS: BASOPHILS ABSOLUTE AUTO 0.06 K/mm3 (0.00-0.23); BASOPHILS PERCENT AUTO 1 % (0-2); EOSINOPHILS ABSOLUTE AUTO 0.16 K/mm3 (0.00-0.68); EOSINOPHILS PERCENT AUTO 1 % (0-6); Hematocrit 34.8 % (33.0-51.0); Hemoglobin 11.1 g/dL (11.5-16.0); IMMATURE GRAN ABSOLUTE AUTO 0.03 K/mm3 (0.00-0.10); IMMATURE GRAN PERCENT AUTO 0 % (0-1); LYMPHOCYTES ABSOLUTE AUTO 1.39 K/mm3 (0.84-5.20); LYMPHOCYTES PERCENT AUTO 13 % (21-46); MONOCYTES ABSOLUTE AUTO 0.75 K/mm3 (0.16-1.47); MONOCYTES PERCENT AUTO 7 % (4-13); Mean Corpuscular HGB 26.8 pg (26.0-34.0); Mean Corpuscular HGB Conc 31.9 g/dL (31.5-36.5); Mean Corpuscular Volume 84 fL (80-100); Mean Platelet Volume 10.6 fL (9.1-12.4); NEUTROPHILS ABSOLUTE AUTO 8.72 K/mm3 (1.96-9.15); NEUTROPHILS PERCENT AUTO 79 % (41-73); Platelet Count 490 K/mm3 (150-400); RDW Coefficient Variation 18.3 % (11.7-14.2); RDW Standard Deviation 56.1 fL (35.1-46.3); Red Blood Cell Count 4.14 M/mm3 (3.80-5.20); White Blood Cell Count 11.11 K/mm3 (4.00-11.30)
[2022-06-08 09:37] LABS: Appearance, Urine Clear (Clear); Color, Urine Yellow (P-Yellow)
[2022-06-08 09:44] LABS: Bun/Creatinine Ratio 11.3 (12.0-20.0); Calcium, Blood 9.2 mg/dL (8.5-10.1); Creatinine, Blood 1.06 mg/dL (0.40-1.00); Potassium, Blood 3.1 mmol/L (3.5-5.5)
[2022-06-08] MEDS ORDERED: POTA10T PO (10:05)
== END 2022-06-08 10:28 | disposition home or self-care (01) ==
LOC: ER 08:31
PROVIDERS: Emergency Medicine
DX: S70.02XA Contusion of left hip, initial encounter (principal); R60.0 Localized edema; E03.9 Hypothyroidism, unspecified; E78.5 Hyperlipidemia, unspecified; I10 Essential (primary) hypertension; Z79.899 Other long term (current) drug therapy; Z79.52 Long term (current) use of systemic steroids; W18.30XA Fall on same level, unspecified, initial encounter; Y92.009 Unspecified place in unspecified non-institutional (private) residence as the place of occurrence of the external cause
CPT/HCPCS: 51701; 73502; 80048; 81003; 85025; A9270

== ENCOUNTER 2022-12-02 05:43 | Emergency (ER) | payer MEDICARE ==
[~2022-12-02] VITALS: Ht 165.1 cm; Wt 90.7 kg
[2022-12-02 06:08] LABS: BASOPHILS PERCENT AUTO 1 % (0-2); EOSINOPHILS ABSOLUTE AUTO 0.48 K/mm3 (0.00-0.68); EOSINOPHILS PERCENT AUTO 4 % (0-6); Hematocrit 29.8 % (33.0-51.0); Hemoglobin 9.4 g/dL (11.5-16.0); IMMATURE GRAN ABSOLUTE AUTO 0.06 K/mm3 (0.00-0.10); IMMATURE GRAN PERCENT AUTO 1 % (0-1); LYMPHOCYTES ABSOLUTE AUTO 2.06 K/mm3 (0.84-5.20); LYMPHOCYTES PERCENT AUTO 16 % (21-46); MONOCYTES ABSOLUTE AUTO 1.04 K/mm3 (0.16-1.47); MONOCYTES PERCENT AUTO 8 % (4-13); Mean Corpuscular HGB 24.8 pg (26.0-34.0); Mean Corpuscular HGB Conc 31.5 g/dL (31.5-36.5); Mean Corpuscular Volume 79 fL (80-100); Mean Platelet Volume 10.5 fL (9.1-12.4); NEUTROPHILS ABSOLUTE AUTO 8.99 K/mm3 (1.96-9.15); NEUTROPHILS PERCENT AUTO 71 % (41-73); Platelet Count 480 K/mm3 (150-400); RDW Coefficient Variation 16.8 % (11.7-14.2); RDW Standard Deviation 47.6 fL (35.1-46.3); Red Blood Cell Count 3.79 M/mm3 (3.80-5.20); White Blood Cell Count 12.73 K/mm3 (4.00-11.30)
[2022-12-02 06:24] LABS: Albumin, Blood 2.9 g/dL (3.4-5.0); Albumin/Globulin Ratio 0.7 (0.8-1.8); Bilirubin, Total 0.4 mg/dL (0.1-1.0); Bun/Creatinine Ratio 22.8 (12.0-20.0); Creatinine, Blood 1.62 mg/dL (0.40-1.00); Globulin, Blood 4.1 g/dL (2.2-4.0); Potassium, Blood 4.6 mmol/L (3.5-5.5)
[2022-12-02 07:28] LABS: Source, Urine Straight Cath
[2022-12-02 07:38] LABS: Appearance, Urine Cloudy (Clear); Bilirubin, Urine Neg (Neg); Blood, Urine 2+ (Neg); Color, Urine Yellow (P-Yellow); Glucose Qualitative, Urine Neg (Neg); Ketones, Urine Neg (Neg); Leukocyte Esterase, Urine 3+ (Neg); Nitrite, Urine Neg (Neg); Protein, Urine 2+ (Neg); Specific Gravity, Urine 1.015 (1.003-1.022); Urobilinogen, Urine NORM (Normal)
[2022-12-02 07:53] LABS: White Blood Cells, Urine 50-100 /hpf (0-5)
[2022-12-02 07:55] LABS: Bacteria Many /hpf; Squamous Epithelial Cells Few /hpf (Few)
[2022-12-02 07:56] LABS: Transitional Epithelial Cells Few /hpf (0-Rare)
[2022-12-02] MEDS ORDERED: CEPH500 PO (10:59)
== END 2022-12-02 11:06 | disposition home or self-care (01) ==
LOC: ER 05:43
PROVIDERS: Student in an Organized Health Care Education/Training Program
DX: N39.0 Urinary tract infection, site not specified (principal); N17.9 Acute kidney failure, unspecified; R44.3 Hallucinations, unspecified; F03.90 Unspecified dementia, unspecified severity, without behavioral disturbance, psychotic disturbance, mood disturbance, and anxiety; E03.9 Hypothyroidism, unspecified; I10 Essential (primary) hypertension; Z79.890 Hormone replacement therapy; Z79.899 Other long term (current) drug therapy; Z79.52 Long term (current) use of systemic steroids
CPT/HCPCS: 70450; 72125; 72128; 80053; 81001; 85025; 87086; 93005; 93010; 96365; 99284-25; A9270; J0696; J7120

== ENCOUNTER 2023-01-05 19:12 | Inpatient (IN) | payer MEDICARE ==
[~2023-01-05] VITALS: Ht 165.1 cm; Wt 72.6 kg
[~2023-01-05 19:12] MED LIST changes: +CEPH500 PO; -LOSA50 PO; +LOSARTAN POTAS100 M1 PO
[2023-01-05 20:34] LABS: Albumin, Blood 2.3 g/dL (3.4-5.0); Albumin/Globulin Ratio 0.6 (0.8-1.8); BASOPHILS ABSOLUTE AUTO 0.05 K/mm3 (0.00-0.23); BASOPHILS PERCENT AUTO 0 % (0-2); Bilirubin, Total 0.4 mg/dL (0.1-1.0); Bun/Creatinine Ratio 20.8 (12.0-20.0); Calcium, Blood 8.4 mg/dL (8.5-10.1); Creatinine, Blood 1.01 mg/dL (0.40-1.00); EOSINOPHILS ABSOLUTE AUTO 0.35 K/mm3 (0.00-0.68); EOSINOPHILS PERCENT AUTO 2 % (0-6); Globulin, Blood 3.7 g/dL (2.2-4.0); Hematocrit 25.1 % (33.0-51.0); Hemoglobin 7.7 g/dL (11.5-16.0); IMMATURE GRAN ABSOLUTE AUTO 0.08 K/mm3 (0.00-0.10); IMMATURE GRAN PERCENT AUTO 1 % (0-1); LYMPHOCYTES ABSOLUTE AUTO 1.85 K/mm3 (0.84-5.20); LYMPHOCYTES PERCENT AUTO 13 % (21-46); MONOCYTES ABSOLUTE AUTO 0.97 K/mm3 (0.16-1.47); MONOCYTES PERCENT AUTO 7 % (4-13); Mean Corpuscular HGB 24.1 pg (26.0-34.0); Mean Corpuscular HGB Conc 30.7 g/dL (31.5-36.5); Mean Corpuscular Volume 79 fL (80-100); Mean Platelet Volume 10.5 fL (9.1-12.4); NEUTROPHILS ABSOLUTE AUTO 11.09 K/mm3 (1.96-9.15); NEUTROPHILS PERCENT AUTO 77 % (41-73); Platelet Count 584 K/mm3 (150-400); Potassium, Blood 3.9 mmol/L (3.5-5.5); RDW Coefficient Variation 18.4 % (11.7-14.2); RDW Standard Deviation 52.4 fL (35.1-46.3); Red Blood Cell Count 3.19 M/mm3 (3.80-5.20); White Blood Cell Count 14.39 K/mm3 (4.00-11.30)
[2023-01-05 23:35] LABS: Magnesium, Blood 2.3 mg/dL (1.6-2.4); Thyroid Stimulating Hormone 1.8 uIU/mL (0.360-4.800)
[2023-01-06 01:35] LABS: Source, Urine Clean Catch
[2023-01-06 01:37] LABS: Bilirubin, Urine Neg (Neg); Blood, Urine 1+ (Neg); Glucose Qualitative, Urine Neg (Neg); Ketones, Urine Neg (Neg); Leukocyte Esterase, Urine 2+ (Neg); Nitrite, Urine Neg (Neg); Protein, Urine 1+ (Neg); Urobilinogen, Urine 1+ (Normal)
[2023-01-06 01:41] LABS: Appearance, Urine Clear (Clear); Color, Urine Yellow (P-Yellow)
[2023-01-06 01:42] LABS: Bacteria Few /hpf; Red Blood Cells, Urine 0-2 /hpf (0-2); Squamous Epithelial Cells Few /hpf (Few)
[2023-01-06] MEDS ORDERED: ATOR20 PO (02:22)
[2023-01-06] MEDS ORDERED: BUPROPION XL150 M1 PO (02:25)
[2023-01-06] MEDS ORDERED: OMEP20ER PO (02:27)
[2023-01-06] MEDS ORDERED: POTA10T PO (02:29)
[2023-01-06 03:07] LABS: BASOPHILS ABSOLUTE AUTO 0.04 K/mm3 (0.00-0.23); BASOPHILS PERCENT AUTO 0 % (0-2); EOSINOPHILS ABSOLUTE AUTO 0.39 K/mm3 (0.00-0.68); EOSINOPHILS PERCENT AUTO 4 % (0-6); Hematocrit 21.2 % (33.0-51.0); Hemoglobin 6.5 g/dL (11.5-16.0); IMMATURE GRAN ABSOLUTE AUTO 0.03 K/mm3 (0.00-0.10); IMMATURE GRAN PERCENT AUTO 0 % (0-1); LYMPHOCYTES ABSOLUTE AUTO 2.33 K/mm3 (0.84-5.20); LYMPHOCYTES PERCENT AUTO 24 % (21-46); MONOCYTES ABSOLUTE AUTO 0.84 K/mm3 (0.16-1.47); MONOCYTES PERCENT AUTO 9 % (4-13); Mean Corpuscular HGB 24.4 pg (26.0-34.0); Mean Corpuscular HGB Conc 30.7 g/dL (31.5-36.5); Mean Corpuscular Volume 80 fL (80-100); Mean Platelet Volume 10.1 fL (9.1-12.4); NEUTROPHILS ABSOLUTE AUTO 6.28 K/mm3 (1.96-9.15); NEUTROPHILS PERCENT AUTO 63 % (41-73); Platelet Count 444 K/mm3 (150-400); RDW Coefficient Variation 18.5 % (11.7-14.2); Red Blood Cell Count 2.66 M/mm3 (3.80-5.20); White Blood Cell Count 9.91 K/mm3 (4.00-11.30)
[2023-01-06 03:27] LABS: Albumin, Blood 1.9 g/dL (3.4-5.0); Albumin/Globulin Ratio 0.6 (0.8-1.8); Bilirubin, Total 0.2 mg/dL (0.1-1.0); Bun/Creatinine Ratio 17.1 (12.0-20.0); Calcium, Blood 7.5 mg/dL (8.5-10.1); Globulin, Blood 3.2 g/dL (2.2-4.0); Potassium, Blood 3.5 mmol/L (3.5-5.5); Total Protein, Blood 5.1 g/dL (6.4-8.2)
--- NOTE | 2023-01-06 04:50 | NUR ---
SHIFT SUMMARY 82 YR F ADMITTED ON 01/05/23 FOR MELENA/ANEMIA. DNR. H&H CAME BACK < 7 AND 1 UNIT OF PRBC WAS ORDERED FOR ADMINISTRATION. CURRENTLY WAITING FOR BLOOD TO ARRIVE. PT IS PLEASANT AND COOPERATIVE AND HAS SIGNED A BLOOD CONSENT FORM. NO C/O N/V SINCE ARRIVING TO THIS UNIT, AND NO BM. WILL CONTINUE TO MONITOR DURING BLOOD TRANSFUSUION AND PASS ON REPORT TO DAY SHIFT.
[2023-01-06 12:04] LABS: Hematocrit 22.5 % (33.0-51.0); Hemoglobin 7.1 g/dL (11.5-16.0)
--- NOTE | 2023-01-06 17:09 | NUR ---
01/06/23 1909 Ozzy Leiva HISTORY, CHART, MEDICATIONS AND ALLERGIES REVIEWED BEFORE START OF PROCEDURE. PATIENT CONFIRMS NPO STATUS AND AGREES WITH SCHEDULED PROCEDURE. 3-LEAD EKG REVIEWED WITH PHYSICIAN PRIOR TO START OF PROCEDURE. MONITOR INTACT WITH CONTINUOUS PULSE OXIMETRY,CAPNOGRAPHY, 3-LEAD EKG, INTERMITTENT BP. SUPPLEMENTAL O2 TO BE TITRATED THROUGHOUT PROCEDURE TO MAINTAIN O2 SATURATION ABOVE 90%. PATIENT DETERMINED TO BE ASA APPROPRIATE FOR PROPOFOL SEDATION PRIOR TO START OF PROCEDURE BY DR. JOHN. Bite Block Placed.
--- NOTE | 2023-01-06 18:28 | NUR ---
SHIFT SUMMARY PATIENT DENIES PAIN, NAUSEA, AND SHORTNESS OF BREATH. PATIENT IS A SBA TO THE BSC. 1UNIT OF PRBC TRANFUSED THIS SHIFT. PATIENT TOLERATED WELL. PATIENT SLEPT ON AND OFF THIS SHIFT. TRENDING H&H. PATIENT WENT FOR UPPER SCOPE AROUND 1600. PATIENT BACK TO ROOM AT 1745. POST OP VITALS STARTED. PATIENT HAS BEEN NPO MOST OF DAY. PATIENT IS PLEASANT AND COOPERATIVE WITH CARE.
[2023-01-06] MEDS ORDERED: OXYB5 PO (19:28)
[2023-01-06 21:04] LABS: Hemoglobin 7.1 g/dL (11.5-16.0)
--- NOTE | 2023-01-07 05:47 | NUR ---
SUPPORT SPECIALIST SUMMARY PT A/OX4. NPO AT START OF SHIFT AND MOVED TO CLEAR LIQUIDS 01/07/23; PT HAS DECLINED PO FLUIDS SO FAR THIS SHIFT. PT DENIES PAIN, NAUSEA, SOB. POST OP VITALS COMPLETED T/O SHIFT; VITALS REVIEWED AND STABLE. 20:50 HGB 7.1; WILL MONITOR AM LABS. PT SBA T/BSC. RT AC IV LEAKING/TENDER; REMOVED. LEFT AC IV INTACT. PT ABLE TO MAKE NEEDS KNOWN. CALL LIGHT ACCESSIBLE.
[2023-01-07 05:50] LABS: BASOPHILS ABSOLUTE AUTO 0.06 K/mm3 (0.00-0.23); BASOPHILS PERCENT AUTO 1 % (0-2); EOSINOPHILS ABSOLUTE AUTO 0.55 K/mm3 (0.00-0.68); EOSINOPHILS PERCENT AUTO 8 % (0-6); Hemoglobin 7.3 g/dL (11.5-16.0); IMMATURE GRAN ABSOLUTE AUTO 0.03 K/mm3 (0.00-0.10); IMMATURE GRAN PERCENT AUTO 0 % (0-1); LYMPHOCYTES ABSOLUTE AUTO 1.69 K/mm3 (0.84-5.20); LYMPHOCYTES PERCENT AUTO 23 % (21-46); MONOCYTES ABSOLUTE AUTO 0.61 K/mm3 (0.16-1.47); MONOCYTES PERCENT AUTO 8 % (4-13); Mean Corpuscular HGB 25.1 pg (26.0-34.0); Mean Corpuscular HGB Conc 31.7 g/dL (31.5-36.5); Mean Corpuscular Volume 79 fL (80-100); Mean Platelet Volume 9.9 fL (9.1-12.4); NEUTROPHILS ABSOLUTE AUTO 4.37 K/mm3 (1.96-9.15); NEUTROPHILS PERCENT AUTO 60 % (41-73); Platelet Count 400 K/mm3 (150-400); RDW Coefficient Variation 18.2 % (11.7-14.2); RDW Standard Deviation 52.1 fL (35.1-46.3); Red Blood Cell Count 2.91 M/mm3 (3.80-5.20); White Blood Cell Count 7.31 K/mm3 (4.00-11.30)
[2023-01-07 06:47] LABS: Albumin, Blood 2.4 g/dL (3.4-5.0); Albumin/Globulin Ratio 0.8 (0.8-1.8); Bilirubin, Total 0.4 mg/dL (0.1-1.0); Bun/Creatinine Ratio 10.4 (12.0-20.0); Calcium, Blood 8.3 mg/dL (8.5-10.1); Creatinine, Blood 1.15 mg/dL (0.40-1.00); Globulin, Blood 3.2 g/dL (2.2-4.0); Potassium, Blood 3.7 mmol/L (3.5-5.5); Total Protein, Blood 5.6 g/dL (6.4-8.2)
--- NOTE | 2023-01-07 14:40 | NUR ---
Initial palliative care consult: Rosangela is an 82 year old wlady with a history of depression, post polio syndrome, basal cell carcinoma, hypothyroidism, hyperlipidemia, diverticulitis, HTN, osteoarthritis. She was admitted with melena. [place] alone [place] property [place] of town. She had an EGD done yesterday with biopsies taken by Dr. Moreno. She reports difficulty with food becoming stuck when she swallows which she reports she has noticed over the past week or so. She also reports that she has lost 40 pounds in the past month unintentionally. She reports she has not received any information or test reports (biopsy results pending) at this time. She reports she has been recently looking into moving into town in a long term community where she has access to additional help that she made need. She reports that she has fallen at home and was fortunate enough to be able to call the neighbors for assistance. She has a daugther that lives in [place] and a son in [place]. She reports her son is working with her for making the move into a long term community. Once she makes a decision he will be coming out to [place] to assist with the transition and paperwork that will be required. She reports she has a POLST form on her fridge at home and confirms her DNR status. Spent most of this visit gathering information, offering support and confirming her code status. Did not get into any in depth advanced care planning as test results are not back and have not been discussed with pt by the MD. Pt reports she feels she has a good support system and is looking for an alternate living situation. She denies pain, N/V or SOB during the visit. She is hoping to go home in the next day or so but wants to be able to see if she can eat solid food prior to discharge. Her diet was advanced from clear liquid to full liquid diet for today. PC to follow and assist with advanced care planning and symptom management prn.
--- NOTE | 2023-01-07 18:11 | NUR ---
SHIFT SUMMARY PT A/O X4; PLEASANT AND COOPERATIVE WITH CARE. AWAITING RESULTS OF EGD BIOPSY. PT WORKED WITH PHYSICAL AND OCCUPATIONAL THERAPY THIS SHIFT. NO ACUTE CHANGES OR COMPLAINTS THIS SHIFT. VSS.
--- NOTE | 2023-01-08 06:03 | NUR ---
RECEIVED CALL FROM A "LUIS" STATING SHE THE PATIENT'S [id number] AND WAS REQUESTING AN UPDATE ON THE PATIENT. THERE IS NO "LUIS" ON THE PATIENT'S RELEASE OF INFORMATION. WILL ASK DAY SHIFT RN TO DISCUSS WITH PATIENT AND CLARIFY IF LUIS IS OKAY TO DISCUSS THE PT'S INFORMATION WITH. LUIS'S NUMBER IS [phone].
--- NOTE | 2023-01-08 06:32 | NUR ---
GASOLINE TESTER SUMMARY: A&Ox4. PLEASANT AND COOPEARTIVE WITH CARE. CALLS APPROPRIATELY AND IS ABLE TO COMMUNICATE NEEDS EFFECTIVELY. ORIENTED TO OWN ABILITY AND EXHIBITS GOOD JUDGMENT. SBA TO BSC FOR VOIDING A FEW TIMES T/O THE NIGHT. TELE SINUS w/ PACs @ 72bpm. AWAITING DIAGNOSTIC EGD Bx RESULTS. LABS DRAWN THIS AM; NO CRITICAL RESULTS RECEIVED AT THIS TIME. WILL REPORT TO ONCOMING DAVID. JARED MAC HOME TODAY.
[2023-01-08 07:09] LABS: Albumin, Blood 2.2 g/dL (3.4-5.0); Albumin/Globulin Ratio 0.7 (0.8-1.8); Bilirubin, Total 0.3 mg/dL (0.1-1.0); Bun/Creatinine Ratio 11.7 (12.0-20.0); Calcium, Blood 7.8 mg/dL (8.5-10.1); Creatinine, Blood 1.2 mg/dL (0.40-1.00); Globulin, Blood 3.2 g/dL (2.2-4.0); Potassium, Blood 3.8 mmol/L (3.5-5.5); Total Protein, Blood 5.4 g/dL (6.4-8.2)
[2023-01-08 08:58] LABS: Hematocrit 23.2 % (33.0-51.0); Hemoglobin 7.3 g/dL (11.5-16.0); Mean Corpuscular HGB Conc 31.5 g/dL (31.5-36.5); Mean Corpuscular Volume 80 fL (80-100); Mean Platelet Volume 10.6 fL (9.1-12.4); Platelet Count 414 K/mm3 (150-400); RDW Coefficient Variation 18.4 % (11.7-14.2); RDW Standard Deviation 53.4 fL (35.1-46.3); Red Blood Cell Count 2.92 M/mm3 (3.80-5.20)
--- NOTE | 2023-01-08 13:14 | NUR ---
UA CX REPORT REVIEWED. DR. YORK NOTIFIED OF CX REPORT AND SYMPTOMS OF PT OBSERVED BY PT DAUGHTER WHILE VISITING. NO NEW ORDERS.
[2023-01-08] MEDS ORDERED: SUCRALFATE PO (16:28)
[2023-01-08] MEDS ORDERED: PANT40 PO (17:29)
--- NOTE | 2023-01-08 18:30 | NUR ---
DISCHARGE SUMMARY: PT EDUCATED ON DISCHARGE INSTRUCTIONS AND MEDICATIONS. PT VU. PT ASSISTED WITH GETTING DRESSED AND PACKING UP BELONGINGS. PT ESCORTED TO POV VIA WHEELCHAIR WITH FRIEND.
== END 2023-01-08 18:26 | disposition home health service (06) | DRG 369 ==
LOC: ER 19:12 → MEDS 19:13
PROVIDERS: Emergency Medicine; Family Medicine; Internal Medicine; Student in an Organized Health Care Education/Training Program; ADMIT Internal Medicine
PROC: 0DB58ZX Excision of Esophagus, Via Natural or Artificial Opening Endoscopic, Diagnostic (ICD-10-PCS; 2023-01-06)
PROC: 30233N1 Transfusion of Nonautologous Red Blood Cells into Peripheral Vein, Percutaneous Approach (ICD-10-PCS; principal; 2023-01-06 16:45)
PROC: 0DB98ZX Excision of Duodenum, Via Natural or Artificial Opening Endoscopic, Diagnostic (ICD-10-PCS; 2023-01-06 16:45)
DX: K21.01 Gastro-esophageal reflux disease with esophagitis, with bleeding (principal); D62 Acute posthemorrhagic anemia; Z66 Do not resuscitate; Z28.21 Immunization not carried out because of patient refusal; R63.4 Abnormal weight loss; K22.2 Esophageal obstruction; R82.71 Bacteriuria; K59.00 Constipation, unspecified; K44.9 Diaphragmatic hernia without obstruction or gangrene; K57.30 Diverticulosis of large intestine without perforation or abscess without bleeding; F32.A Depression, unspecified; I10 Essential (primary) hypertension; E03.9 Hypothyroidism, unspecified; E78.5 Hyperlipidemia, unspecified; M19.90 Unspecified osteoarthritis, unspecified site; G14 Postpolio syndrome; B96.20 Unspecified Escherichia coli [E. coli] as the cause of diseases classified elsewhere; F03.90 Unspecified dementia, unspecified severity, without behavioral disturbance, psychotic disturbance, mood disturbance, and anxiety; Z68.26 Body mass index [BMI] 26.0-26.9, adult; Z90.13 Acquired absence of bilateral breasts and nipples; Z90.710 Acquired absence of both cervix and uterus; Z98.890 Other specified postprocedural states; Z91.030 Bee allergy status; Z91.038 Other insect allergy status; Z79.890 Hormone replacement therapy; Z79.899 Other long term (current) drug therapy
CPT/HCPCS: 36415; 74177; 80053; 81001; 82272; 83735; 84443; 84484; 85014; 85018; 85025; 85027; 86850; 86900; 86901; 86920; 87077; 87086; 87186; 88305; 88312; 93005; 93010; 96361; 96374-59; 96375; 96376; 97116; 97162; 97165; 97535; 99285-25; A9270; C9113; G0378; J0696; J2405; J2704; J7030; J7050; J7120; P9016; P9047; Q9967

== ENCOUNTER 2023-02-24 18:21 | Emergency (ER) | payer MEDICARE ==
[~2023-02-24] VITALS: Ht 165.1 cm; Wt 72.6 kg
[~2023-02-24 18:21] MED LIST changes: +ATOR20 PO; +BUPROPION XL150 M1 PO; +PANT40 PO; +SUCRALFATE PO
[2023-02-24 19:11] LABS: BASOPHILS ABSOLUTE AUTO 0.09 K/mm3 (0.00-0.23); BASOPHILS PERCENT AUTO 1 % (0-2); EOSINOPHILS ABSOLUTE AUTO 0.46 K/mm3 (0.00-0.68); EOSINOPHILS PERCENT AUTO 5 % (0-6); Hematocrit 29.2 % (33.0-51.0); IMMATURE GRAN ABSOLUTE AUTO 0.02 K/mm3 (0.00-0.10); IMMATURE GRAN PERCENT AUTO 0 % (0-1); LYMPHOCYTES ABSOLUTE AUTO 2.26 K/mm3 (0.84-5.20); LYMPHOCYTES PERCENT AUTO 26 % (21-46); MONOCYTES ABSOLUTE AUTO 0.59 K/mm3 (0.16-1.47); MONOCYTES PERCENT AUTO 7 % (4-13); Mean Corpuscular HGB 23.3 pg (26.0-34.0); Mean Corpuscular HGB Conc 30.8 g/dL (31.5-36.5); Mean Corpuscular Volume 76 fL (80-100); Mean Platelet Volume 10.3 fL (9.1-12.4); NEUTROPHILS ABSOLUTE AUTO 5.24 K/mm3 (1.96-9.15); NEUTROPHILS PERCENT AUTO 61 % (41-73); Platelet Count 588 K/mm3 (150-400); RDW Coefficient Variation 18.1 % (11.7-14.2); RDW Standard Deviation 49.5 fL (35.1-46.3); Red Blood Cell Count 3.86 M/mm3 (3.80-5.20); White Blood Cell Count 8.66 K/mm3 (4.00-11.30)
[2023-02-24 19:30] VITALS: BP 158/68
[2023-02-24] MEDS ORDERED: HYDHCL25 PO (19:31)
[2023-02-24] MEDS ORDERED: OMEP20ER PO (19:31)
[2023-02-24 19:32] LABS: Albumin, Blood 2.9 g/dL (3.4-5.0); Albumin/Globulin Ratio 0.7 (0.8-1.8); Bilirubin, Total 0.2 mg/dL (0.1-1.0); Bun/Creatinine Ratio 18.9 (12.0-20.0); Calcium, Blood 8.8 mg/dL (8.5-10.1); Creatinine, Blood 1.11 mg/dL (0.40-1.00); Globulin, Blood 4.2 g/dL (2.2-4.0); Potassium, Blood 3.5 mmol/L (3.5-5.5); Total Protein, Blood 7.1 g/dL (6.4-8.2)
[2023-02-24] MEDS ORDERED: SUCRALFATE114 PO (19:33)
== END 2023-02-24 21:28 | disposition home or self-care (01) ==
LOC: ER 18:21
PROVIDERS: Emergency Medicine
DX: K92.1 Melena (principal); D64.9 Anemia, unspecified; Z91.030 Bee allergy status; Z79.899 Other long term (current) drug therapy; E03.9 Hypothyroidism, unspecified; E78.5 Hyperlipidemia, unspecified; I10 Essential (primary) hypertension; M19.90 Unspecified osteoarthritis, unspecified site
CPT/HCPCS: 80053; 82272; 85025; 86850; 86900; 86901; 93005; 93010; 99283-25

== ENCOUNTER 2023-06-14 03:47 | Emergency (ER) | payer MEDICARE ==
[~2023-06-14] VITALS: Ht 165.1 cm; Wt 72.6 kg
[~2023-06-14 03:47] MED LIST changes: +HYDHCL25 PO; +SUCRALFATE114 PO
[2023-06-14 04:40] LABS: BASOPHILS ABSOLUTE AUTO 0.08 K/mm3 (0.00-0.23); BASOPHILS PERCENT AUTO 1 % (0-2); EOSINOPHILS ABSOLUTE AUTO 0.83 K/mm3 (0.00-0.68); EOSINOPHILS PERCENT AUTO 9 % (0-6); Hematocrit 29.3 % (33.0-51.0); IMMATURE GRAN ABSOLUTE AUTO 0.03 K/mm3 (0.00-0.10); IMMATURE GRAN PERCENT AUTO 0 % (0-1); LYMPHOCYTES ABSOLUTE AUTO 2.14 K/mm3 (0.84-5.20); LYMPHOCYTES PERCENT AUTO 23 % (21-46); MONOCYTES ABSOLUTE AUTO 0.67 K/mm3 (0.16-1.47); MONOCYTES PERCENT AUTO 7 % (4-13); Mean Corpuscular HGB Conc 30.7 g/dL (31.5-36.5); Mean Corpuscular Volume 75 fL (80-100); Mean Platelet Volume 10.6 fL (9.1-12.4); NEUTROPHILS ABSOLUTE AUTO 5.59 K/mm3 (1.96-9.15); NEUTROPHILS PERCENT AUTO 60 % (41-73); Platelet Count 491 K/mm3 (150-400); RDW Coefficient Variation 21.2 % (11.7-14.2); RDW Standard Deviation 56.4 fL (35.1-46.3); Red Blood Cell Count 3.91 M/mm3 (3.80-5.20); White Blood Cell Count 9.34 K/mm3 (4.00-11.30)
[2023-06-14 05:01] LABS: Albumin, Blood 2.7 g/dL (3.4-5.0); Albumin/Globulin Ratio 0.7 (0.8-1.8); Bilirubin, Total 0.4 mg/dL (0.1-1.0); Bun/Creatinine Ratio 13.4 (12.0-20.0); Calcium, Blood 8.3 mg/dL (8.5-10.1); Creatinine, Blood 1.12 mg/dL (0.40-1.00); Potassium, Blood 3.5 mmol/L (3.5-5.5); Total Protein, Blood 6.7 g/dL (6.4-8.2)
[2023-06-14 06:06] LABS: Influenza A, PCR NEGATIVE (NEGATIVE); Influenza B, PCR NEGATIVE (NEGATIVE); Resp Syncytial Virus, PCR NEGATIVE (NEGATIVE); SARS-Cov-2 (COVID-19) PCR, MMC NEGATIVE (NEGATIVE)
[2023-06-14 07:30] VITALS: BP 140/68
== END 2023-06-14 08:03 | disposition home or self-care (01) ==
LOC: ER 03:47
PROVIDERS: Emergency Medicine
DX: I11.0 Hypertensive heart disease with heart failure (principal); I50.9 Heart failure, unspecified; E03.9 Hypothyroidism, unspecified; E78.5 Hyperlipidemia, unspecified; F03.90 Unspecified dementia, unspecified severity, without behavioral disturbance, psychotic disturbance, mood disturbance, and anxiety; Z91.030 Bee allergy status; Z85.828 Personal history of other malignant neoplasm of skin; Z20.822 Contact with and (suspected) exposure to COVID-19; Z79.899 Other long term (current) drug therapy
CPT/HCPCS: 0241U; 71045; 80053; 83880; 84484; 85025; 93005; 93010; 99285-25

== ENCOUNTER 2023-06-18 10:52 | Day surgery (SDC) | payer MEDICARE ==
[~2023-06-18] VITALS: Ht 165.1 cm; Wt 68.0 kg
[2023-06-18 12:42] VITALS: BP 128/92
== END 2023-06-18 12:27 | disposition home or self-care (01) ==
LOC: ORSCSDS 10:52
PROVIDERS: Internal Medicine Gastroenterology
PROC: 0DB58ZX Excision of Esophagus, Via Natural or Artificial Opening Endoscopic, Diagnostic (ICD-10-PCS; principal; 2023-06-18 12:30)
DX: K21.9 Gastro-esophageal reflux disease without esophagitis (principal); B37.81 Candidal esophagitis; K44.9 Diaphragmatic hernia without obstruction or gangrene; G47.33 Obstructive sleep apnea (adult) (pediatric); E03.9 Hypothyroidism, unspecified; I12.9 Hypertensive chronic kidney disease with stage 1 through stage 4 chronic kidney disease, or unspecified chronic kidney disease; N18.32 Chronic kidney disease, stage 3b; Z79.899 Other long term (current) drug therapy
CPT/HCPCS: 88305; 88312; J2704; J7120

== ENCOUNTER 2023-12-05 13:24 | Emergency (ER) | payer MEDICARE ==
[~2023-12-05] VITALS: Ht 165.1 cm; Wt 72.6 kg
[2023-12-05 13:42] VITALS: BP 162/86
[2023-12-05 14:38] LABS: Influenza A, PCR NEGATIVE (NEGATIVE); Influenza B, PCR NEGATIVE (NEGATIVE); Resp Syncytial Virus, PCR NEGATIVE (NEGATIVE); SARS-Cov-2 (COVID-19) PCR, MMC NEGATIVE (NEGATIVE)
[2023-12-05 14:43] LABS: BASOPHILS PERCENT AUTO 1 % (0-2); EOSINOPHILS ABSOLUTE AUTO 0.44 K/mm3 (0.00-0.68); EOSINOPHILS PERCENT AUTO 4 % (0-6); Hematocrit 32.2 % (33.0-51.0); Hemoglobin 10.1 g/dL (11.5-16.0); IMMATURE GRAN ABSOLUTE AUTO 0.03 K/mm3 (0.00-0.10); IMMATURE GRAN PERCENT AUTO 0 % (0-1); LYMPHOCYTES PERCENT AUTO 17 % (21-46); MONOCYTES ABSOLUTE AUTO 0.72 K/mm3 (0.16-1.47); MONOCYTES PERCENT AUTO 6 % (4-13); Mean Corpuscular HGB 24.4 pg (26.0-34.0); Mean Corpuscular HGB Conc 31.4 g/dL (31.5-36.5); Mean Corpuscular Volume 78 fL (80-100); Mean Platelet Volume 9.9 fL (9.1-12.4); NEUTROPHILS ABSOLUTE AUTO 8.04 K/mm3 (1.96-9.15); NEUTROPHILS PERCENT AUTO 72 % (41-73); Platelet Count 545 K/mm3 (150-400); RDW Coefficient Variation 20.7 % (11.7-14.2); RDW Standard Deviation 58.4 fL (35.1-46.3); Red Blood Cell Count 4.14 M/mm3 (3.80-5.20); White Blood Cell Count 11.23 K/mm3 (4.00-11.30)
[2023-12-05 15:02] LABS: Albumin/Globulin Ratio 0.6 (0.8-1.8); Bilirubin, Total 0.3 mg/dL (0.1-1.0); Bun/Creatinine Ratio 23.5 (12.0-20.0); Calcium, Blood 9.1 mg/dL (8.5-10.1); Creatinine, Blood 1.15 mg/dL (0.40-1.00); Globulin, Blood 4.8 g/dL (2.2-4.0); Potassium, Blood 4.6 mmol/L (3.5-5.5); Total Protein, Blood 7.8 g/dL (6.4-8.2)
[2023-12-05 17:43] LABS: Source, Urine Clean Catch
[2023-12-05 17:45] LABS: Appearance, Urine Clear (Clear); Bilirubin, Urine Neg (Neg); Blood, Urine Neg (Neg); Glucose Qualitative, Urine Neg (Neg); Ketones, Urine Neg (Neg); Leukocyte Esterase, Urine 1+ (Neg); Nitrite, Urine Neg (Neg); Protein, Urine Neg (Neg); Specific Gravity, Urine 1.005 (1.003-1.022); Urobilinogen, Urine NORM (Normal)
[2023-12-05 17:52] LABS: Color, Urine Pale Yellow (P-Yellow)
[2023-12-05 17:53] LABS: Bacteria Rare /hpf; Red Blood Cells, Urine 0-2 /hpf (0-2); Squamous Epithelial Cells Rare /hpf (Few); White Blood Cells, Urine 0-2 /hpf (0-5)
[2023-12-05] MEDS ORDERED: AMOCLA875 PO (17:54)
[2023-12-05] MEDS ORDERED: DOXY100 PO (17:54)
[2023-12-05] MEDS ORDERED: Doxycycline Hyclate 100 MG TAB PO ONE (17:55)
[2023-12-05] MEDS ORDERED: ONDA4ODT MM (17:55)
[2023-12-05] MEDS ORDERED: Amoxicillin/Clavulanate K 875 MG Tab PO ONE (17:55)
[2023-12-05] MEDS ORDERED: Ondansetron 4 MG SoluTab MM ONE (17:55)
== END 2023-12-05 18:25 | disposition home or self-care (01) ==
LOC: ER 13:24
PROVIDERS: Student in an Organized Health Care Education/Training Program
DX: J18.9 Pneumonia, unspecified organism (principal); F03.90 Unspecified dementia, unspecified severity, without behavioral disturbance, psychotic disturbance, mood disturbance, and anxiety; F32.A Depression, unspecified; E03.9 Hypothyroidism, unspecified; E78.5 Hyperlipidemia, unspecified; I10 Essential (primary) hypertension; Z11.52 Encounter for screening for COVID-19; Z91.030 Bee allergy status; Z79.899 Other long term (current) drug therapy; Z79.890 Hormone replacement therapy
CPT/HCPCS: 0241U; 71046; 80053; 81001; 85025; 87086; 93005; 93010; 99285-25; A9270

== ENCOUNTER → 2023-12-11 | Outpatient (CLI) | payer MEDICARE ==
[~2023-12-11] MED LIST changes: +AMOCLA875 PO; +DOXY100 PO; +ONDA4ODT MM
[2023-12-11 10:18] LABS: BASOPHILS ABSOLUTE AUTO 0.08 K/mm3 (0.00-0.23); BASOPHILS PERCENT AUTO 1 % (0-2); EOSINOPHILS ABSOLUTE AUTO 0.77 K/mm3 (0.00-0.68); EOSINOPHILS PERCENT AUTO 6 % (0-6); Hematocrit 32.9 % (33.0-51.0); Hemoglobin 10.2 g/dL (11.5-16.0); IMMATURE GRAN ABSOLUTE AUTO 0.05 K/mm3 (0.00-0.10); IMMATURE GRAN PERCENT AUTO 0 % (0-1); LYMPHOCYTES ABSOLUTE AUTO 1.94 K/mm3 (0.84-5.20); LYMPHOCYTES PERCENT AUTO 16 % (21-46); MONOCYTES ABSOLUTE AUTO 0.95 K/mm3 (0.16-1.47); MONOCYTES PERCENT AUTO 8 % (4-13); Mean Corpuscular HGB 24.3 pg (26.0-34.0); Mean Corpuscular Volume 79 fL (80-100); Mean Platelet Volume 10.4 fL (9.1-12.4); NEUTROPHILS ABSOLUTE AUTO 8.52 K/mm3 (1.96-9.15); NEUTROPHILS PERCENT AUTO 69 % (41-73); Platelet Count 551 K/mm3 (150-400); RDW Coefficient Variation 20.3 % (11.7-14.2); RDW Standard Deviation 56.9 fL (35.1-46.3); Red Blood Cell Count 4.19 M/mm3 (3.80-5.20); White Blood Cell Count 12.31 K/mm3 (4.00-11.30)
[2023-12-11 10:25] LABS: Bun/Creatinine Ratio 21.6 (12.0-20.0); Calcium, Blood 9.2 mg/dL (8.5-10.1); Creatinine, Blood 1.48 mg/dL (0.40-1.00); Potassium, Blood 4.4 mmol/L (3.5-5.5)
== END | disposition home or self-care (01) ==
LOC: LAB 10:13 → LAB SHORT 10:13
PROVIDERS: Physician Assistant Surgical
DX: R05.9 Cough, unspecified (principal)
CPT/HCPCS: 80048; 85025

== ENCOUNTER → 2024-02-22 | Outpatient (CLI) | payer MEDICARE ==
[2024-02-22 13:46] LABS: Source, Urine Clean Catch
[2024-02-22 16:13] LABS: Appearance, Urine Clear (Clear); Bilirubin, Urine Neg (Neg); Blood, Urine Neg (Neg); Color, Urine Yellow (P-Yellow); Glucose Qualitative, Urine Neg (Neg); Ketones, Urine Neg (Neg); Leukocyte Esterase, Urine 2+ (Neg); Nitrite, Urine Neg (Neg); Protein, Urine 1+ (Neg); Urobilinogen, Urine NORM (Normal)
[2024-02-22 16:33] LABS: Bacteria Few /hpf; Calcium Oxalate Crystals Many /hpf; Red Blood Cells, Urine 0-2 /hpf (0-2); Squamous Epithelial Cells Few /hpf (Few)
== END ==
LOC: LAB 13:43 → LAB SHORT 13:43
PROVIDERS: Student in an Organized Health Care Education/Training Program
DX: N39.46 Mixed incontinence (principal); D50.9 Iron deficiency anemia, unspecified; R05.8 Other specified cough; R53.81 Other malaise; Z87.01 Personal history of pneumonia (recurrent)
CPT/HCPCS: 81001; 87086

== ENCOUNTER 2024-09-06 12:04 | Emergency (ER) | payer MEDICARE ==
[~2024-09-06] VITALS: Ht 157.5 cm; Wt 61.2 kg
[2024-09-06 13:50] LABS: BASOPHILS ABSOLUTE AUTO 0.09 K/mm3 (0.00-0.23); BASOPHILS PERCENT AUTO 1 % (0-2); EOSINOPHILS ABSOLUTE AUTO 0.72 K/mm3 (0.00-0.68); EOSINOPHILS PERCENT AUTO 6 % (0-6); Hematocrit 35.9 % (33.0-51.0); Hemoglobin 11.4 g/dL (11.5-16.0); IMMATURE GRAN ABSOLUTE AUTO 0.07 K/mm3 (0.00-0.10); IMMATURE GRAN PERCENT AUTO 1 % (0-1); LYMPHOCYTES ABSOLUTE AUTO 1.62 K/mm3 (0.84-5.20); LYMPHOCYTES PERCENT AUTO 13 % (21-46); MONOCYTES ABSOLUTE AUTO 0.81 K/mm3 (0.16-1.47); MONOCYTES PERCENT AUTO 6 % (4-13); Mean Corpuscular HGB 26.9 pg (26.0-34.0); Mean Corpuscular HGB Conc 31.8 g/dL (31.5-36.5); Mean Corpuscular Volume 85 fL (80-100); Mean Platelet Volume 10.2 fL (9.1-12.4); NEUTROPHILS ABSOLUTE AUTO 9.65 K/mm3 (1.96-9.15); NEUTROPHILS PERCENT AUTO 74 % (41-73); Platelet Count 533 K/mm3 (150-400); RDW Coefficient Variation 15.7 % (11.7-14.2); RDW Standard Deviation 47.8 fL (35.1-46.3); Red Blood Cell Count 4.24 M/mm3 (3.80-5.20); White Blood Cell Count 12.96 K/mm3 (4.00-11.30)
[2024-09-06 14:09] LABS: Albumin, Blood 2.6 g/dL (3.4-5.0); Albumin/Globulin Ratio 0.5 (0.8-1.8); Bilirubin, Total 0.4 mg/dL (0.1-1.0); Bun/Creatinine Ratio 23.7 (12.0-20.0); Creatinine, Blood 0.89 mg/dL (0.40-1.00); Globulin, Blood 5.2 g/dL (2.2-4.0); Potassium, Blood 3.5 mmol/L (3.5-5.5); Total Protein, Blood 7.8 g/dL (6.4-8.2)
[2024-09-06] MEDS ORDERED: Lasix20 MG PO (14:46)
[2024-09-06 15:15] VITALS: BP 169/79
== END 2024-09-06 15:56 | disposition home or self-care (01) ==
LOC: ER 12:04
PROVIDERS: Emergency Medicine
DX: R60.0 Localized edema (principal); I10 Essential (primary) hypertension; M19.90 Unspecified osteoarthritis, unspecified site; E03.9 Hypothyroidism, unspecified; E78.5 Hyperlipidemia, unspecified; Z79.899 Other long term (current) drug therapy; Z91.030 Bee allergy status
CPT/HCPCS: 71045; 80053; 83880; 84484; 85025; 93005; 93010; 99284-25

== ENCOUNTER 2024-11-08 03:40 | Inpatient (IN) | payer MEDICARE ==
[~2024-11-08] VITALS: Ht 162.6 cm; Wt 62.2 kg
[~2024-11-08 03:40] MED LIST changes: +Lasix20 MG PO
[2024-11-08 04:53] LABS: BASOPHILS ABSOLUTE AUTO 0.13 K/mm3 (0.00-0.23); BASOPHILS PERCENT AUTO 1 % (0-2); EOSINOPHILS ABSOLUTE AUTO 0.74 K/mm3 (0.00-0.68); EOSINOPHILS PERCENT AUTO 6 % (0-6); Hematocrit 37.7 % (33.0-51.0); Hemoglobin 11.8 g/dL (11.5-16.0); IMMATURE GRAN ABSOLUTE AUTO 0.03 K/mm3 (0.00-0.10); IMMATURE GRAN PERCENT AUTO 0 % (0-1); LYMPHOCYTES ABSOLUTE AUTO 2.07 K/mm3 (0.84-5.20); LYMPHOCYTES PERCENT AUTO 16 % (21-46); MONOCYTES ABSOLUTE AUTO 0.82 K/mm3 (0.16-1.47); MONOCYTES PERCENT AUTO 6 % (4-13); Mean Corpuscular HGB 24.4 pg (26.0-34.0); Mean Corpuscular HGB Conc 31.3 g/dL (31.5-36.5); Mean Corpuscular Volume 78 fL (80-100); Mean Platelet Volume 10.6 fL (9.1-12.4); NEUTROPHILS ABSOLUTE AUTO 9.14 K/mm3 (1.96-9.15); NEUTROPHILS PERCENT AUTO 71 % (41-73); Platelet Count 527 K/mm3 (150-400); RDW Coefficient Variation 17.3 % (11.7-14.2); RDW Standard Deviation 48.4 fL (35.1-46.3); Red Blood Cell Count 4.83 M/mm3 (3.80-5.20); White Blood Cell Count 12.93 K/mm3 (4.00-11.30)
[2024-11-08 05:06] LABS: Albumin, Blood 2.8 g/dL (3.4-5.0); Albumin/Globulin Ratio 0.5 (0.8-1.8); Bilirubin, Total 0.4 mg/dL (0.1-1.0); Bun/Creatinine Ratio 31.6 (12.0-20.0); Calcium, Blood 9.2 mg/dL (8.5-10.1); Creatinine, Blood 0.98 mg/dL (0.40-1.00); Globulin, Blood 5.6 g/dL (2.2-4.0); Potassium, Blood 3.5 mmol/L (3.5-5.5); Total Protein, Blood 8.4 g/dL (6.4-8.2)
[2024-11-08 05:32] LABS: Influenza A, PCR NEGATIVE (NEGATIVE); Influenza B, PCR NEGATIVE (NEGATIVE); Resp Syncytial Virus, PCR NEGATIVE (NEGATIVE); SARS-Cov-2 (COVID-19) PCR, MMC NEGATIVE (NEGATIVE)
[2024-11-08] MEDS ORDERED: NS 1,000 ML IV SCH (06:50)
[2024-11-08] MEDS ORDERED: Acetaminophen 500 MG Tab PO ONE (07:00)
[2024-11-08] MEDS ORDERED: Ipratropium/Albuterol SulF 2.5-0.5MG/3 ML Amp INH ONE (07:35)
[2024-11-08] MEDS ORDERED: Oxymetazoline 0.05% Nasal Relief Spray 15mL BTL ONE (07:35)
[2024-11-08] MEDS ORDERED: Benzonatate 100 MG Cap PO PRN (10:05)
[2024-11-08] MEDS ORDERED: Acetaminophen 325 MG TABLET PO PRN (10:05)
[2024-11-08] MEDS ORDERED: FLU VACC TS2024-25(6MOS UP)/PF 45 MCG/0.5 ML SYRINGE IM SCH (10:05)
[2024-11-08] MEDS ORDERED: Albuterol 2.5 MG/3 ML VIAL INH PRN (10:05)
[2024-11-08] MEDS ORDERED: Ipratropium/Albuterol SulF 2.5-0.5MG/3 ML Amp INH SCH (10:10)
[2024-11-08 12:05] LABS: Adenovirus Not Detected (NOT DETECT); Bordetella pertussis Not Detected (NOT DETECT); Chlamydophila pneumoniae Not Detected (NOT DETECT); Coronavirus 229E Not Detected (NOT DETECT); Coronavirus HKU1 Not Detected (NOT DETECT); Coronavirus NL63 Not Detected (NOT DETECT); Coronavirus OC43 Not Detected (NOT DETECT); Human Metapneumovirus Not Detected (NOT DETECT); Human Rhinovirus/Enterovirus Not Detected (NOT DETECT); Influenza A/2009-H1 Not Detected (NOT DETECT); Influenza A/H1 Not Detected (NOT DETECT); Influenza A/H3 Not Detected (NOT DETECT); Influenza B Not Detected (NOT DETECT); Mycoplasma pneumoniae Not Detected (NOT DETECT); Parainfluenza Virus 1 Not Detected (NOT DETECT); Parainfluenza Virus 2 Not Detected (NOT DETECT); Parainfluenza Virus 3 Not Detected (NOT DETECT); Parainfluenza Virus 4 Not Detected (NOT DETECT); Respiratory Syncytial Virus Not Detected (NOT DETECT); SARS-Cov-2 (COVID-19), BioFire Not Detected (NOT DETECT)
[2024-11-08 13:00] VITALS: BP 150/79
[2024-11-08] MEDS ORDERED: FURO20 PO (15:39)
[2024-11-08] MEDS ORDERED: EFUDEX40 GM TOP (15:45)
[2024-11-08] MEDS ORDERED: KLAYESTA15 GM EXT (15:46)
[2024-11-08] MEDS ORDERED: Flonase 0.05% N16 GM (15:47)
[2024-11-08] MEDS ORDERED: SUCR1 PO (15:48)
[2024-11-08] MEDS ORDERED: LOSA50 PO (15:48)
[2024-11-08] MEDS ORDERED: HYDHCL25 PO (15:49)
[2024-11-08] MEDS ORDERED: FERSU300 PO (15:50)
[2024-11-08] MEDS ORDERED: PANT40 PO (15:50)
[2024-11-08 16:46] VITALS: BP 168/98
[2024-11-08] MEDS ORDERED: Furosemide 20 MG Tab PO SCH (17:00)
[2024-11-08] MEDS ORDERED: Pantoprazole Sodium 20 MG Tab PO SCH (17:00)
[2024-11-08] MEDS ORDERED: HyDROXyzine HCl 25 MG Tab PO PRN (17:00)
[2024-11-08] MEDS ORDERED: Azithromycin 250 MG Tab PO SCH (17:00)
--- NOTE | 2024-11-08 18:15 | NUR ---
SHIFT SUMMARY; ADMIT FROM ER. A/A/OX4, 4L 02 VIA PR WHICH IS BASELINE FOR PT. VSS, REPORTS FEELING ILL AND WEEK FOR THE LAST COUPLE DAYS. PURWICK IN PLACE FOR URGENCY, PLEASANT AND COOPERATIVE WITH CARE. FAMILY AT BEDSIDE. PT REPORTS WANTING TO BE A DNR, UPDATED DR. STONER. FAMILY LOOKING FOR POLST FORM OR ADVANCE DIRECTIVE. WILL CONTINUE TO MONITOR AND TREAT UNTIL REPORT GIVEN TO ONCOMING NOC RN.
[2024-11-08 20:34] VITALS: BP 135/80
[2024-11-08] MEDS ORDERED: AmLODIPine Besylate 5 MG Tab PO SCH (21:00)
[2024-11-08] MEDS ORDERED: buPROPion HCL 150 MG TAB.SR.12H PO SCH (21:00)
[2024-11-08] MEDS ORDERED: GuaiFENesin 600 MG TabCR PO SCH (21:00)
[2024-11-08] MEDS ORDERED: Miconazole Nitrate 2% 85 GM PWD TOP SCH (21:00)
[2024-11-08] MEDS ORDERED: CloNIDine 0.1 MG Tab PO SCH (21:00)
[2024-11-08] MEDS ORDERED: oxyBUTYnin chloride 5 MG TAB PO SCH (21:00)
[2024-11-09 00:23] VITALS: BP 139/77
[2024-11-09 04:16] VITALS: BP 131/77
[2024-11-09 04:17] LABS: BASOPHILS ABSOLUTE AUTO 0.12 K/mm3 (0.00-0.23); BASOPHILS PERCENT AUTO 1 % (0-2); EOSINOPHILS ABSOLUTE AUTO 0.53 K/mm3 (0.00-0.68); EOSINOPHILS PERCENT AUTO 5 % (0-6); Hematocrit 33.3 % (33.0-51.0); Hemoglobin 10.4 g/dL (11.5-16.0); IMMATURE GRAN ABSOLUTE AUTO 0.04 K/mm3 (0.00-0.10); IMMATURE GRAN PERCENT AUTO 0 % (0-1); LYMPHOCYTES ABSOLUTE AUTO 1.93 K/mm3 (0.84-5.20); LYMPHOCYTES PERCENT AUTO 20 % (21-46); MONOCYTES ABSOLUTE AUTO 0.83 K/mm3 (0.16-1.47); MONOCYTES PERCENT AUTO 8 % (4-13); Mean Corpuscular HGB 24.5 pg (26.0-34.0); Mean Corpuscular HGB Conc 31.2 g/dL (31.5-36.5); Mean Corpuscular Volume 79 fL (80-100); Mean Platelet Volume 10.9 fL (9.1-12.4); NEUTROPHILS ABSOLUTE AUTO 6.41 K/mm3 (1.96-9.15); NEUTROPHILS PERCENT AUTO 65 % (41-73); Platelet Count 466 K/mm3 (150-400); RDW Coefficient Variation 17.3 % (11.7-14.2); RDW Standard Deviation 48.5 fL (35.1-46.3); Red Blood Cell Count 4.24 M/mm3 (3.80-5.20); White Blood Cell Count 9.86 K/mm3 (4.00-11.30)
[2024-11-09 04:31] LABS: Bun/Creatinine Ratio 20.3 (12.0-20.0); Calcium, Blood 8.3 mg/dL (8.5-10.1); Creatinine, Blood 0.98 mg/dL (0.40-1.00); Potassium, Blood 3.1 mmol/L (3.5-5.5)
--- NOTE | 2024-11-09 04:33 | NUR ---
SHIFT SUMMARY ADMITTED FOR RESPIRATORY FAILURE. FULL CODE. EMPIRIC ANTIB RX ARE SCHEDULED. 4 LPM O2 VIA NC IS BASELINE. TELEMETRY: NSR @ 88 BPM. CARDIAC DIET. STANDBY ASSIST TO BSC. PULMONOLOGY CONSULT IS DR. CASTLE. MONTY IN PLACE. SHE LIVES AT [facility]. PALLIATIVE CARE IS CONSULTED. RESPIRATORY PANEL WAS NEGATIVE. HX: PULMONARY FIBROSIS, CHF. SHE USES A CPAP @ .
[2024-11-09] MEDS ORDERED: Levothyroxine Sodium 0.125 MG Tab PO SCH (06:00)
[2024-11-09] MEDS ORDERED: Sucralfate 1 GM Tab PO SCH (07:30)
[2024-11-09 07:57] VITALS: BP 143/85
[2024-11-09] MEDS ORDERED: Losartan Potassium 25 MG Tab PO SCH (09:00)
[2024-11-09] MEDS ORDERED: FLUOROURACIL TOP SCH (09:00)
[2024-11-09] MEDS ORDERED: Ferrous Sulfate 325 MG Tab PO SCH (09:00)
[2024-11-09] MEDS ORDERED: Enoxaparin 40 MG/0.4 ML SYR SC SCH (09:00)
[2024-11-09] MEDS ORDERED: Fluticasone 0.05% Nasal Spray SCH (09:00)
[2024-11-09] MEDS ORDERED: Losartan Potassium 50 MG Tab PO SCH (09:00)
[2024-11-09] MEDS ORDERED: FLUoxetine HCL 20 MG CAP PO SCH (09:00)
[2024-11-09] MEDS ORDERED: Atorvastatin 10 MG Tab PO SCH (09:00)
[2024-11-09] MEDS ORDERED: Saline Nasal Spray 45 ML PRN (12:15)
[2024-11-09] MEDS ORDERED: PredniSONE 20 MG Tab PO SCH (13:00)
--- NOTE | 2024-11-09 13:01 | NUR ---
Upon receiving a referral for spiritual care, I visited the patient. She tells me about her family, her medical problems and her Tenriism simba. SHe also admits that she is exhausted emotionally and physically. I normalized her experience and provided therapeutic listening and prayer. She voices her appreciation for the prayer and the visit. I will continue to remain available.
[2024-11-09 14:28] VITALS: BP 120/61
[2024-11-09] MEDS ORDERED: Potassium Chloride 20 MEQ/15 ML UDC PO ONE ×2 (14:35→16:25)
[2024-11-09] MEDS ORDERED: Mycophenolate Mofetil 250 MG Cap PO SCH (17:00)
--- NOTE | 2024-11-09 18:07 | NUR ---
SHIFT SUMMARY NO ACUTE CHANGES THIS SHIFT. PT A&OX4. SP02>90% ON 4L NC AT REST, DESATS W/ ACTIVITY. TELEMETRY SHOWS SINUS RHYTHM/SINUS TACH, HR 90'S-100'S. UP TO BSC 1P ASSIST TO VOID. BED BATH GIVEN. PT ABLE TO WORK W/ PT AND OT THIS SHIFT, WALKED AROUND ROOM W/ FWW/GB. PT'S NEPHEW, SADI, CALLED FOR UPDATE THIS AM. LIVES IN [place]. NEPHEW CALLED TO TALK TO PT THIS EVENING, PER THEIR ROUTINE. MD STONER IN ROOM TO ASSESS. MD CASTLE IN ROOM TO CONSULT. PT CHANGED TO MEDICAL NO TELE STATUS. CALL LIGHT IN REACH.
[2024-11-09 19:39] VITALS: BP 135/76
[2024-11-10 00:26] VITALS: BP 133/72
--- NOTE | 2024-11-10 06:48 | NUR ---
SHIFT SUMMARY: Pt is admitted for respiratory failure and is a DNR. is alert and able to make needs known. ADLs have been SBA-1 depending on activity but did not get out of bed. Denies pain or discomfort when asked. On 4lpm O2 Via NC.
[2024-11-10 07:20] VITALS: BP 140/75
[2024-11-10] MEDS ORDERED: Leflunomide 20 MG Tab PO SCH (09:00)
[2024-11-10] MEDS ORDERED: GUAI600T33 PO (12:32)
[2024-11-10] MEDS ORDERED: PRED20 PO (12:33)
[2024-11-10] MEDS ORDERED: [UNRECOGNIZED DRUG - CODE] PO (12:33)
[2024-11-10] MEDS ORDERED: NASAL SPRAY88 ML (12:35)
[2024-11-10] MEDS ORDERED: ALBU8HFA2 INH (12:36)
[2024-11-10] MEDS ORDERED: IPRAT-ALBUT 0.5-3 ML INH (12:38)
--- NOTE | 2024-11-10 17:02 | NUR ---
SUMMARY/DISCHARGE PT DISCHARGED TO HOME WITH FAMILY, PT VERBALIZED UNDERSTANDING OF DISCHARGE INSTRUCTIONS REGARDING MEDICATIONS AND FOLLOW UP, PT TAKEN OUT VIA WHEELCHAIR
== END 2024-11-10 16:53 | disposition home health service (06) | DRG 196 ==
LOC: ER 03:40 → ERHOLD 10:01 → PCU 10:01 → MEDS 11-10 00:32
PROVIDERS: Emergency Medicine; Student in an Organized Health Care Education/Training Program; ADMIT Internal Medicine
DX: J84.10 Pulmonary fibrosis, unspecified (principal); J96.21 Acute and chronic respiratory failure with hypoxia; I50.32 Chronic diastolic (congestive) heart failure; I13.0 Hypertensive heart and chronic kidney disease with heart failure and stage 1 through stage 4 chronic kidney disease, or unspecified chronic kidney disease; F03.93 Unspecified dementia, unspecified severity, with mood disturbance; F03.94 Unspecified dementia, unspecified severity, with anxiety; I27.20 Pulmonary hypertension, unspecified; K21.9 Gastro-esophageal reflux disease without esophagitis; Z66 Do not resuscitate; K44.9 Diaphragmatic hernia without obstruction or gangrene; E03.9 Hypothyroidism, unspecified; E78.5 Hyperlipidemia, unspecified; D63.1 Anemia in chronic kidney disease; D50.9 Iron deficiency anemia, unspecified; N18.30 Chronic kidney disease, stage 3 unspecified; M06.9 Rheumatoid arthritis, unspecified; G47.33 Obstructive sleep apnea (adult) (pediatric); G14 Postpolio syndrome; E87.6 Hypokalemia; Z79.69 Long term (current) use of other immunomodulators and immunosuppressants; Z99.81 Dependence on supplemental oxygen; Z79.890 Hormone replacement therapy; Z85.828 Personal history of other malignant neoplasm of skin
CPT/HCPCS: 0202U; 0241U; 36415; 71045; 71260; 80048; 80053; 83880; 84145; 84484; 85025; 93005; 93010; 93306; 94640; 94664; 94760; 94762; 96360; 96361; 97110; 97116; 97161; 97165; 97530; 97535; 99285-25; A9270; J1650; J2470; J7030; J7512; J7517; Q9967

== ENCOUNTER 2024-11-29 15:44 | Emergency (ER) | payer MEDICARE ==
[~2024-11-29] VITALS: Ht 165.1 cm; Wt 56.7 kg
[~2024-11-29 15:44] MED LIST changes: +ALBU8HFA2 INH; +EFUDEX40 GM TOP; +FERSU300 PO; +FURO20 PO; +Flonase 0.05% N16 GM; +GUAI600T33 PO; +IPRAT-ALBUT 0.5-3 ML INH; +KLAYESTA15 GM EXT; +LOSA50 PO; +NASAL SPRAY88 ML; +PRED20 PO; +SUCR1 PO; +[UNRECOGNIZED DRUG - CODE] PO
[2024-11-29 16:22] LABS: BASOPHILS ABSOLUTE AUTO 0.03 K/mm3 (0.00-0.23); BASOPHILS PERCENT AUTO 0 % (0-2); EOSINOPHILS ABSOLUTE AUTO 0.01 K/mm3 (0.00-0.68); EOSINOPHILS PERCENT AUTO 0 % (0-6); Hematocrit 33.1 % (33.0-51.0); Hemoglobin 10.7 g/dL (11.5-16.0); IMMATURE GRAN ABSOLUTE AUTO 0.12 K/mm3 (0.00-0.10); IMMATURE GRAN PERCENT AUTO 1 % (0-1); LYMPHOCYTES ABSOLUTE AUTO 0.82 K/mm3 (0.84-5.20); LYMPHOCYTES PERCENT AUTO 5 % (21-46); MONOCYTES ABSOLUTE AUTO 0.27 K/mm3 (0.16-1.47); MONOCYTES PERCENT AUTO 2 % (4-13); Mean Corpuscular HGB 24.7 pg (26.0-34.0); Mean Corpuscular HGB Conc 32.3 g/dL (31.5-36.5); Mean Corpuscular Volume 76 fL (80-100); Mean Platelet Volume 10.1 fL (9.1-12.4); NEUTROPHILS ABSOLUTE AUTO 16.06 K/mm3 (1.96-9.15); NEUTROPHILS PERCENT AUTO 93 % (41-73); Platelet Count 679 K/mm3 (150-400); RDW Coefficient Variation 19.4 % (11.7-14.2); RDW Standard Deviation 51.3 fL (35.1-46.3); Red Blood Cell Count 4.34 M/mm3 (3.80-5.20); White Blood Cell Count 17.31 K/mm3 (4.00-11.30)
[2024-11-29 16:44] LABS: Albumin, Blood 2.5 g/dL (3.4-5.0); Albumin/Globulin Ratio 0.7 (0.8-1.8); Bilirubin, Total 0.5 mg/dL (0.1-1.0); Bun/Creatinine Ratio 19.1 (12.0-20.0); Calcium, Blood 8.5 mg/dL (8.5-10.1); Creatinine, Blood 1.15 mg/dL (0.40-1.00); Globulin, Blood 3.4 g/dL (2.2-4.0); Potassium, Blood 4.2 mmol/L (3.5-5.5); Total Protein, Blood 5.9 g/dL (6.4-8.2)
[2024-11-29 19:26] LABS: Source, Urine Clean Catch
[2024-11-29 19:32] LABS: Appearance, Urine Clear (Clear); Bilirubin, Urine Neg (Neg); Blood, Urine Neg (Neg); Color, Urine Yellow (P-Yellow); Glucose Qualitative, Urine Neg (Neg); Ketones, Urine Neg (Neg); Leukocyte Esterase, Urine 3+ (Neg); Nitrite, Urine Neg (Neg); Protein, Urine 1+ (Neg); Specific Gravity, Urine 1.005 (1.003-1.022); Urobilinogen, Urine NORM (Normal)
[2024-11-29 19:39] LABS: Amorphous Light (0-Heavy); Bacteria Few /hpf; Red Blood Cells, Urine 0-2 /hpf (0-2); Squamous Epithelial Cells Few /hpf (Few)
[2024-11-29 19:40] LABS: Transitional Epithelial Cells Rare /hpf (0-Rare)
[2024-11-29] MEDS ORDERED: Ondansetron 4 MG TAB PO ONE (20:00)
[2024-11-29] MEDS ORDERED: Cephalexin Monohydrate 500 MG Cap PO ONE (20:00)
[2024-11-29] MEDS ORDERED: Acetaminophen 325 MG TABLET PO ONE (20:00)
[2024-11-29] MEDS ORDERED: Ketorolac Tromethamine 15mg Vial IV ONE (20:00)
[2024-11-29] MEDS ORDERED: OxyCODONE HCL 5 MG TAB PO ONE (20:05)
[2024-11-29] MEDS ORDERED: Cefpodoxime Proxetil 200 MG Tab PO ONE (20:05)
[2024-11-29] MEDS ORDERED: CEFP200 PO (20:06)
[2024-11-29 20:15] VITALS: BP 139/75
== END 2024-11-29 20:37 | disposition home or self-care (01) ==
LOC: ER 15:44
PROVIDERS: Student in an Organized Health Care Education/Training Program
DX: R10.9 Unspecified abdominal pain (principal); R07.9 Chest pain, unspecified; K59.00 Constipation, unspecified; N39.0 Urinary tract infection, site not specified; K44.9 Diaphragmatic hernia without obstruction or gangrene; E03.9 Hypothyroidism, unspecified; E78.5 Hyperlipidemia, unspecified; F03.90 Unspecified dementia, unspecified severity, without behavioral disturbance, psychotic disturbance, mood disturbance, and anxiety; Z79.890 Hormone replacement therapy; Z91.030 Bee allergy status; Z79.899 Other long term (current) drug therapy
CPT/HCPCS: 71045; 74177; 80053; 81001; 83605; 83690; 84484; 85025; 93005; 93010; 96374-59; 99285-25; A9270; J1885; Q9967

== ENCOUNTER 2024-12-07 12:59 | Inpatient (IN) | payer MEDICARE ==
[~2024-12-07] VITALS: Ht 165.1 cm; Wt 56.5 kg
[~2024-12-07 12:59] MED LIST changes: -ALBU8HFA2 INH; +ALBU90OI INH; +CEFP200 PO
[2024-12-07 14:40] LABS: BASOPHILS ABSOLUTE AUTO 0.02 K/mm3 (0.00-0.23); BASOPHILS PERCENT AUTO 0 % (0-2); EOSINOPHILS ABSOLUTE AUTO 0.38 K/mm3 (0.00-0.68); EOSINOPHILS PERCENT AUTO 6 % (0-6); Hematocrit 28.8 % (33.0-51.0); Hemoglobin 9.2 g/dL (11.5-16.0); IMMATURE GRAN ABSOLUTE AUTO 0.02 K/mm3 (0.00-0.10); IMMATURE GRAN PERCENT AUTO 0 % (0-1); LYMPHOCYTES ABSOLUTE AUTO 2.28 K/mm3 (0.84-5.20); LYMPHOCYTES PERCENT AUTO 33 % (21-46); MONOCYTES ABSOLUTE AUTO 0.78 K/mm3 (0.16-1.47); MONOCYTES PERCENT AUTO 11 % (4-13); Mean Corpuscular HGB 24.7 pg (26.0-34.0); Mean Corpuscular HGB Conc 31.9 g/dL (31.5-36.5); Mean Corpuscular Volume 77 fL (80-100); Mean Platelet Volume 10.3 fL (9.1-12.4); NEUTROPHILS ABSOLUTE AUTO 3.45 K/mm3 (1.96-9.15); NEUTROPHILS PERCENT AUTO 50 % (41-73); Platelet Count 520 K/mm3 (150-400); RDW Coefficient Variation 19.9 % (11.7-14.2); RDW Standard Deviation 55.5 fL (35.1-46.3); Red Blood Cell Count 3.72 M/mm3 (3.80-5.20); White Blood Cell Count 6.93 K/mm3 (4.00-11.30)
[2024-12-07 14:55] LABS: Albumin, Blood 2.2 g/dL (3.4-5.0); Albumin/Globulin Ratio 0.6 (0.8-1.8); Bilirubin, Total 0.3 mg/dL (0.1-1.0); Bun/Creatinine Ratio 13.2 (12.0-20.0); Calcium, Blood 8.7 mg/dL (8.5-10.1); Creatinine, Blood 1.06 mg/dL (0.40-1.00); Globulin, Blood 3.5 g/dL (2.2-4.0); Potassium, Blood 3.9 mmol/L (3.5-5.5); Total Protein, Blood 5.7 g/dL (6.4-8.2)
[2024-12-07] MEDS ORDERED: Acetaminophen 325 MG TABLET PO ONE (18:05)
[2024-12-07] MEDS ORDERED: NS 1,000 ML IV SCH ×2 (18:05→21:10)
[2024-12-07 18:25] LABS: Source, Urine Straight Cath
[2024-12-07 18:30] LABS: Appearance, Urine Clear (Clear); Bilirubin, Urine Neg (Neg); Blood, Urine Neg (Neg); Color, Urine Yellow (P-Yellow); Glucose Qualitative, Urine Neg (Neg); Ketones, Urine Neg (Neg); Leukocyte Esterase, Urine Neg (Neg); Nitrite, Urine Neg (Neg); Protein, Urine 1+ (Neg); Urobilinogen, Urine NORM (Normal)
[2024-12-07 19:47] LABS: Hemoglobin 7.9 g/dL (11.5-16.0)
[2024-12-07] MEDS ORDERED: HYDROCODONE-AC1 EA19 PO (22:34)
[2024-12-07 22:36] LABS: CORONAVIRUS COVID-19 AG Negative (NEGATIVE); INFLUENZA A AG Negative (NEGATIVE); INFLUENZA B AG Negative (NEGATIVE)
[2024-12-07] MEDS ORDERED: HYDROcodone 5-APAP 325 TAB PO ONE (22:40)
[2024-12-07] MEDS ORDERED: FLU VACC TS2024-25(6MOS UP)/PF 45 MCG/0.5 ML SYRINGE IM ONE (22:55)
[2024-12-07] MEDS ORDERED: NS 1,000 ML IV ONE (23:00)
[2024-12-07] MEDS ORDERED: Ondansetron HCl 2 MG / ML 2ML Vial IV PRN (23:00)
[2024-12-07] MEDS ORDERED: Pantoprazole Sodium 40 MG in NS 50 ML IV SCH (23:20)
[2024-12-07 23:55] VITALS: BP 145/80
[2024-12-08] VITALS (11 sets, daily range): BP systolic 103–178; BP diastolic 59–96
[2024-12-08 00:36] LABS: Hematocrit 25.1 % (33.0-51.0); Hemoglobin 7.8 g/dL (11.5-16.0)
[2024-12-08 00:44] LABS: IMMATURE RETIC FRACTION 18.8 % (2.3-16.0); RETIC HGB EQUIVALENT 24.3 pg (28.20-36.60); RETICULOCYTE ABSOLUTE 0.0544 M/mm3 (0.0200-0.1100); RETICULOCYTE COUNT PERCENT 1.7 % (0.50-2.50)
[2024-12-08 01:02] LABS: Percent Saturation 16.8 % (15.0-50.0)
--- NOTE | 2024-12-08 02:01 | NUR ---
ADMIT NOTE HANDOFF RECEIVED FROM DIESEL INSTRUCTOR HUGO. PT ARRIVED TO FLOOR VIA GURNEY. PERSONAL POSSESSIONS WITH PATIENT. PT ORIENTED TO UNIT. TELEMETRY IN PLACE. CALL BUTTON WITHIN REACH. IV FLUIDS INFUSING ORDERED.
[2024-12-08] MEDS ORDERED: Albumin (Human) 25gm/100ml 100 ML IV ONE (02:15)
--- NOTE | 2024-12-08 04:39 | NUR ---
SHIFT SUMMARY PATIENT APPEARS TO BE RESTING COMFORTABLY SINCE BEING ADMITTED FROM THE EMERGENCY ROOM. NS AND PROTONIX GTT ARE INFUSING WITHOUT COMPLICATIONS. PATIENT IS ORIENTED X3. SHE HAS HER CALL LIGHT WITHIN REACH AND THE BED ALARM IS SET. SAFETY PRECAUTIONS ARE BEING MAINTAINED.
[2024-12-08] MEDS ORDERED: Albuterol HFA200 ACT/6.7 GM INH INH PRN (06:20)
[2024-12-08] MEDS ORDERED: Ipratropium/Albuterol SulF 2.5-0.5MG/3 ML Amp INH PRN (06:25)
[2024-12-08 06:38] LABS: BASOPHILS ABSOLUTE AUTO 0.03 K/mm3 (0.00-0.23); BASOPHILS PERCENT AUTO 1 % (0-2); EOSINOPHILS ABSOLUTE AUTO 0.35 K/mm3 (0.00-0.68); EOSINOPHILS PERCENT AUTO 7 % (0-6); Hematocrit 22.7 % (33.0-51.0); IMMATURE GRAN ABSOLUTE AUTO 0.02 K/mm3 (0.00-0.10); IMMATURE GRAN PERCENT AUTO 0 % (0-1); LYMPHOCYTES ABSOLUTE AUTO 2.08 K/mm3 (0.84-5.20); LYMPHOCYTES PERCENT AUTO 42 % (21-46); MONOCYTES ABSOLUTE AUTO 0.61 K/mm3 (0.16-1.47); MONOCYTES PERCENT AUTO 12 % (4-13); Mean Corpuscular HGB 24.2 pg (26.0-34.0); Mean Corpuscular HGB Conc 30.8 g/dL (31.5-36.5); Mean Corpuscular Volume 79 fL (80-100); Mean Platelet Volume 10.3 fL (9.1-12.4); NEUTROPHILS ABSOLUTE AUTO 1.86 K/mm3 (1.96-9.15); NEUTROPHILS PERCENT AUTO 38 % (41-73); Platelet Count 354 K/mm3 (150-400); RDW Coefficient Variation 19.9 % (11.7-14.2); RDW Standard Deviation 56.5 fL (35.1-46.3); Red Blood Cell Count 2.89 M/mm3 (3.80-5.20); White Blood Cell Count 4.95 K/mm3 (4.00-11.30)
[2024-12-08] MEDS ORDERED: Saline Nasal Spray 45 ML PRN (06:40)
[2024-12-08 07:13] LABS: Albumin, Blood 2.3 g/dL (3.4-5.0); Albumin/Globulin Ratio 0.9 (0.8-1.8); Bilirubin, Total 0.4 mg/dL (0.1-1.0); Bun/Creatinine Ratio 11.8 (12.0-20.0); Calcium, Blood 7.7 mg/dL (8.5-10.1); Creatinine, Blood 1.19 mg/dL (0.40-1.00); Globulin, Blood 2.5 g/dL (2.2-4.0); Potassium, Blood 3.4 mmol/L (3.5-5.5); Total Protein, Blood 4.8 g/dL (6.4-8.2)
[2024-12-08] MEDS ORDERED: Potassium Chloride 40 MEQ in NS 250 ML IV ONE (07:55)
[2024-12-08] MEDS ORDERED: Fluticasone 0.05% Nasal Spray SCH (09:00)
[2024-12-08] MEDS ORDERED: Furosemide 20 MG Tab PO SCH (09:00)
[2024-12-08] MEDS ORDERED: Mycophenolate Mofetil 250 MG Cap PO SCH (09:00)
[2024-12-08] MEDS ORDERED: Losartan Potassium 25 MG Tab PO SCH (09:00)
[2024-12-08] MEDS ORDERED: AmLODIPine Besylate 5 MG Tab PO SCH (09:00)
[2024-12-08] MEDS ORDERED: buPROPion HCL 150 MG TAB.SR.12H PO SCH (09:00)
[2024-12-08] MEDS ORDERED: CloNIDine 0.1 MG Tab PO SCH (09:00)
[2024-12-08] MEDS ORDERED: Miconazole Nitrate 2% 85 GM PWD TOP SCH (09:00)
[2024-12-08] MEDS ORDERED: Potassium Chloride 10 Meq Tablet SA PO SCH (09:00)
[2024-12-08] MEDS ORDERED: FLUoxetine HCL 20 MG CAP PO SCH (09:00)
[2024-12-08] MEDS ORDERED: oxyBUTYnin chloride 5 MG TAB PO SCH (09:00)
[2024-12-08] MEDS ORDERED: HYDROcodone 5-APAP 325 TAB PO PRN (09:50)
[2024-12-08] MEDS ORDERED: NS 500 ML IV SCH (10:30)
[2024-12-08] MEDS ORDERED: Lactated Ringer's 1,000 ML IV SCH (13:45)
--- NOTE | 2024-12-08 13:53 | NUR ---
PT HAS 22G TO LEFT HAND THAT FLUSHES WELL. PT ALSO HAS 20G IV TO RIGHT AC THAT FLUSHES WELL AND FLOWS TO GRAVITY.
--- NOTE | 2024-12-08 13:58 | NUR ---
PT BROUGHT FROM FLOOR TO DAY SURGERY FOR PROCEDURE. VSS. PT ON RA. History, Chart, Medications and Allergies reviewed before start of procedure. Patient confirms NPO status and agrees with scheduled surgery. Pre-Op teaching done. Pt verbalizes understanding. PT BELONGINGS LEFT IN PERSONAL ROOM ON MEDICAL FLOOR.
[2024-12-08] MEDS ORDERED: Lidocaine HCl 2% 10 ML SDA ONE (14:25)
[2024-12-08] MEDS ORDERED: propofoL 20 ML IV ONE (14:25)
[2024-12-08 15:54] LABS: Hemoglobin 8.9 g/dL (11.5-16.0)
--- NOTE | 2024-12-08 17:27 | NUR ---
12/08/24 [address] MCNEAL; SEE ANESTHESIA RECORDS.
--- NOTE | 2024-12-08 17:27 | NUR ---
MET WITH FRANCISCO AND HER SON SADI PRIOR TO PATIENT RECIEVING SCOPE. THEY WERE WANTING TO PROCEED WITH THIS PROCEDURE AT THIS TIME. CHECKED ON PATIENT AFTER HER PROCEDURE. SHE IS FEELING WELL AT THIS TIME AND IS HUNGRY, AND EATING. DISCUSSED CODE STATUS, AND POLST. SHE OPTED TO BEING A DNR AND SELCTIVE TREATMENT. WE DISCUSSED DISCHARGE GOALS, WE DISCUSSED THE DIFFERENCE BETWEEN HOME HEALTH, PALLIATIVE CARE, OR HOSPICE. WE DISCUSSED GOALS. FRANCISCO EXPRESSED THAT SHE WAS TIRED OF BEING IN THE HOSPITAL AND THAT HER FOCUS WAS COMFORT AT THIS TIME. FAMILY WILL DISCUSS THESE OPTION AND LET US KNOW OF THEIR DECISION.
[2024-12-08] MEDS ORDERED: NEURONTIN300 MG PO (17:42)
--- NOTE | 2024-12-08 18:35 | NUR ---
SUMMARY- PT AAOX4. X1 ASSIST. PT ON 4L=BL. PT HAS MODERATE PAIN IN HER ABD-WELL CONTROLLED WITH NORCO. X1 EPISODE OF DARK STOOLS THIS SHIFT.
[2024-12-08 22:10] LABS: Hematocrit 26.2 % (33.0-51.0); Hemoglobin 8.2 g/dL (11.5-16.0)
[2024-12-09 03:12] VITALS: BP 130/70
--- NOTE | 2024-12-09 05:08 | NUR ---
SHIFT SUMMARY PATIENT HAS BEEN SLEEPING INTERMITTANTLY BETWEEN NURSING CARE. SHE REQUESTED PAIN MEDICATION X1 ON THIS SHIFT FOR LEG PAIN. PATIENT IS ORIENTED X3 AND HAS HER CALL LIGHT WITHIN REACH. PROTONIX GTT CONTINUES TO INFUSED WITHOUT COMPLICATIONS. BED ALARM IS SET. SAFETY PRECAUTIONS ARE BEING MAINTAINED.
[2024-12-09] MEDS ORDERED: Levothyroxine Sodium 0.125 MG Tab PO SCH (06:00)
[2024-12-09 06:06] LABS: BASOPHILS ABSOLUTE AUTO 0.03 K/mm3 (0.00-0.23); BASOPHILS PERCENT AUTO 1 % (0-2); EOSINOPHILS PERCENT AUTO 7 % (0-6); Hematocrit 28.2 % (33.0-51.0); Hemoglobin 8.8 g/dL (11.5-16.0); IMMATURE GRAN ABSOLUTE AUTO 0.03 K/mm3 (0.00-0.10); IMMATURE GRAN PERCENT AUTO 1 % (0-1); LYMPHOCYTES ABSOLUTE AUTO 1.63 K/mm3 (0.84-5.20); LYMPHOCYTES PERCENT AUTO 28 % (21-46); MONOCYTES ABSOLUTE AUTO 0.65 K/mm3 (0.16-1.47); MONOCYTES PERCENT AUTO 11 % (4-13); Mean Corpuscular HGB 25.2 pg (26.0-34.0); Mean Corpuscular HGB Conc 31.2 g/dL (31.5-36.5); Mean Corpuscular Volume 81 fL (80-100); NEUTROPHILS ABSOLUTE AUTO 3.13 K/mm3 (1.96-9.15); NEUTROPHILS PERCENT AUTO 53 % (41-73); Platelet Count 330 K/mm3 (150-400); RDW Coefficient Variation 19.6 % (11.7-14.2); RDW Standard Deviation 56.8 fL (35.1-46.3); Red Blood Cell Count 3.49 M/mm3 (3.80-5.20); White Blood Cell Count 5.87 K/mm3 (4.00-11.30)
[2024-12-09 06:26] LABS: Albumin, Blood 2.2 g/dL (3.4-5.0); Albumin/Globulin Ratio 0.8 (0.8-1.8); Bilirubin, Total 0.4 mg/dL (0.1-1.0); Bun/Creatinine Ratio 10.9 (12.0-20.0); Calcium, Blood 8.2 mg/dL (8.5-10.1); Creatinine, Blood 1.01 mg/dL (0.40-1.00); Globulin, Blood 2.6 g/dL (2.2-4.0); Potassium, Blood 4.5 mmol/L (3.5-5.5); Total Protein, Blood 4.8 g/dL (6.4-8.2)
[2024-12-09 07:20] VITALS: BP 152/88
[2024-12-09] MEDS ORDERED: Gabapentin 300 MG Cap PO SCH (09:00)
[2024-12-09 10:18] LABS: Hematocrit 26.5 % (33.0-51.0); Hemoglobin 8.3 g/dL (11.5-16.0)
[2024-12-09 13:09] VITALS: BP 120/62
[2024-12-09] MEDS ORDERED: ONDA4ODT MM (13:52)
[2024-12-09 15:53] VITALS: BP 109/56
[2024-12-09] MEDS ORDERED: Sucralfate 1000MG / 10ML UD BTL PO SCH (16:30)
--- NOTE | 2024-12-09 17:46 | NUR ---
DISCHARGE SUMMARY PT A&OX3. PT HAS HX OF DEMENTIA. PT ADMITTED DUE TO GI BLEED. PT REPORTS BM THIS AM. PT REPORTS HAVING BLACK BM. LAST HGB WAS 8.3. PT WEARS 4L VIA N/C AT BASE. PT SPO2 IS 98%. PT ABD TENDER. PT CONT. OF URINE AND BOWEL. PT IS WEAK AND SHAKY WHEN AMBULATING. PT TRANSFERS WITH FWW AND GB STAND PIVOT TO [facility]. POWDER APPLIED TO ABD FOLDS. PROTONIX D/C THIS AFTERNOON. PT COMPLAINT OF PAIN, PAIN MANAGED PER EMAR. ADVANCED DIET TOLERATED. PT REPORTS NO NAUSEA VOMITING. PT HAD CRACKERS AND CHEESE THIS AFTERNOON AND COMPLAINT OF SOME ABD PAIN BUT SAID IT WENT AWAY SOON AFTER. WENT OVER DISCHARGE INSTRUCTIONS AND MEDS WITH PT AND SON. PT DISCHARGE HOME ON HOSPICE WITH [facility]. IV D/C. TELE D/C. PT ESCORTED VIA. WHEELCHAIR BY PRODUCTION ESTIMATOR. PT LEFT WITH HARD SCRIPT. COPY IN CHART. MEDS FAXED TO PREFERRED PHARMACY. PT LEFT WITH BELONGINGS. VSS. BED ALARM WAS ON DURING SHIFT. POLST GIVEN TO SON WITH COPIES. ONE COPY LEFT IN CHART.
== END 2024-12-09 17:00 | disposition hospice, home (50) | DRG 811 ==
LOC: ER 12:59 → MEDS 13:00 → UNDODEPER 12-08 00:18 → MEDS 12-08 12:59
PROVIDERS: Emergency Medicine; Student in an Organized Health Care Education/Training Program; Surgery; ADMIT Internal Medicine
PROC: 0DB38ZX Excision of Lower Esophagus, Via Natural or Artificial Opening Endoscopic, Diagnostic (ICD-10-PCS; 2024-12-08)
PROC: 30233N1 Transfusion of Nonautologous Red Blood Cells into Peripheral Vein, Percutaneous Approach (ICD-10-PCS; principal; 2024-12-08 13:30)
DX: D62 Acute posthemorrhagic anemia (principal); K22.11 Ulcer of esophagus with bleeding; F03.94 Unspecified dementia, unspecified severity, with anxiety; F03.93 Unspecified dementia, unspecified severity, with mood disturbance; I10 Essential (primary) hypertension; Z51.5 Encounter for palliative care; Z66 Do not resuscitate; E87.6 Hypokalemia; E03.9 Hypothyroidism, unspecified; R32 Unspecified urinary incontinence; K44.9 Diaphragmatic hernia without obstruction or gangrene; I95.1 Orthostatic hypotension; E86.0 Dehydration; E78.5 Hyperlipidemia, unspecified; K31.89 Other diseases of stomach and duodenum; J84.10 Pulmonary fibrosis, unspecified; Z99.81 Dependence on supplemental oxygen; Z79.890 Hormone replacement therapy; Z79.899 Other long term (current) drug therapy; Z85.828 Personal history of other malignant neoplasm of skin; Z79.52 Long term (current) use of systemic steroids
CPT/HCPCS: 36415; 36430; 51701; 80053; 82728; 83540; 83550; 83880; 85014; 85018; 85025; 85045; 86850; 86900; 86901; 86923; 87428-QW; 96360-59; 96365; 96366; 96375; 96376; 99285-25; A9270; G0378; J2003; J2470; J2704; J3480; J7030; J7050; J7120; J7517; P9016; P9046